=== PATIENT | male | born 1980 | race African-American/Black ===

== ENCOUNTER 2018-05-05 12:21 | Inpatient (IN) | payer OTHER ==
[2018-05-05 12:49] VITALS: BMI 27.8
--- NOTE | 2018-05-05 14:02 | HP ---
CIWA Score Nausea/Vomitin-Mild Nausea/No Vomiting Muscle Tremors: 4-Moderate,w/Arms Extend Anxiety: 2 Agitation: 1-Slight > Activity Paroxysmal Sweats: No Perspiration Orientation: 0-Oriented Tacttile Disturbances: 0-None Auditory Disturbances: 1-Very Mild Visual Disturbances: 1-Very Mild Sensitivity Headache: 2-Mild CIWA-Ar Total Score: 12 - Admission Criteria OASAS Guidelines: Admission for Medically Managed Detox: Requires at least one of the followin. CIWA greater than 12 2. Seizures within the past 24 hours 3. Delirium tremens within the past 24 hours 4. Hallucinations within the past 24 hours 5. Acute intervention needed for co occurring medical disorder 6. Acute intervention needed for co occurring psychiatric disorder 7. Severe withdrawal that cannot be handled at a lower level of care (continued vomiting, continued diarrhea, abnormal vital signs) requiring intravenous medication and/or fluids 8. Admission ROS S - HPI Allergies/Adverse Reactions: Allergies Allergy/AdvReac Type Severity Reaction Status Date / Time No Known Drug Allergies Allergy Unknown Verified 05/05/18 13:11 SEAFOOD Allergy Severe Swelling Uncoded 05/05/18 13:11 History of Present Illness: patient here requesting detox from etoh use , reports 2-6 quarts of liquor / day x 8 months , prior sober x 3 years while incarcerated for DV , released June 2017 , denies current parole / probation , latest etoh use this morning, first age of use 13 , prior detox at this facility 3 years ago . denies illicits. tobacco : 1 ppd since age 13 , does not want nrt PMHX : denies PSHx : denies PSych : denies Meds : denies Shx : lives w/ mother , unemployed Exam Limitations: No Limitations - Ebola screening Have you traveled outside of the country in the last 21 days: No (N) Have you had contact with anyone from an Ebola affected area: No Have you been sick,other than usual withdrawal symptoms: No Do you have a fever: No - Review of Systems Constitutional: See HPI EENT: reports: Other (myopia) Respiratory: reports: No Symptoms reported Cardiac: reports: No Symptoms Reported GI: reports: No Symptoms Reported : reports: No Symptoms Reported Musculoskeletal: reports: No Symptoms Reported Integumentary: reports: No Symptoms Reported Neuro: reports: No Symptoms reported Endocrine: reports: No Symptoms Reported Psychiatric: reports: Orientated x3, Agitated, Anxious Patient History - Patient Medical History Hx Anemia: No Hx Asthma: No Hx Chronic Obstructive Pulmonary Disease (COPD): No Hx Cancer: No Hx Cardiac Disorders: No Hx Congestive Heart Failure: No Hx Hypertension: No Hx Hypercholesterolemia: No Hx Pacemaker: No HX Cerebrovascular Accident: No Hx Seizures: No Hx Dementia: No (feels that he forgets details ) Hx Diabetes: No Hx Gastrointestinal Disorders: No Hx Liver Disease: No Hx Genitourinary Disorders: No Hx Sexually Transmitted Disorders: No Hx Renal Disease (ESRD): No Hx Thyroid Disease: No Hx Human Immunodeficiency Virus (HIV): No (NEGATIVE HX) Hx Hepatitis C: No Hx Depression: Yes Hx Suicide Attempt: No Hx Bipolar Disorder: No (ON PROLIXIN) Hx Schizophrenia: No - Patient Surgical History Past Surgical History: Yes Hx Neurologic Surgery: No Hx Cataract Extraction: No Hx Cardiac Surgery: No Hx Lung Surgery: No Hx Breast Surgery: No Hx Breast Biopsy: No Hx Abdominal Surgery: No Hx Appendectomy: No Hx Cholecystectomy: No Hx Genitourinary Surgery: No Hx Section: No Hx Orthopedic Surgery: No Other Surgical History: stitchen on forehead due to trauma in 2010 Anesthesia Reaction: No - PPD History Previous Implant?: Yes Documented Results: Negative w/proof Implanted On Prior R Admission?: Yes Date: 01/25/14 Results: 0 mm - Smoking Cessation Smoking history: Current every day smoker Have you smoked in the past 12 months: Yes Aproximately how many cigarettes per day: 10 Hx Chewing Tobacco Use: No Initiated information on smoking cessation: No - Substances Abused Alcohol--vodka/beer Route: Oral Frequency: Daily Amount used: 3 pts./2-6 pks. Age of first use: 13 Date of Last Use: 05/05/18 Family Disease History - Family Disease History Family Disease History: Diabetes: Grandparent (ALCOHOLISM), Father (ALCOHOLISM) , Mother (ALCOHOLISM) Admission Physical Exam BHS - Vital Signs Vital Signs: Vital Signs - 24 hr 05/05/18 12:47 Temperature 98.0 F Pulse Rate 74 Respiratory 18 Rate Blood Pressure 127/75 - Physical General Appearance: Yes: Mild Distress, Irritable, Anxious HEENTM: Yes: EOMI, Hearing grossly Normal, Normocephalic, Normal Voice, Pharynx Normal Respiratory: Yes: Chest Non-Tender, Lungs Clear, Normal Breath Sounds Neck: Yes: No masses,lesions,Nodules, Trachea in good position Breast: Yes: Breast Exam Deferred Cardiology: Yes: Regular Rhythm, Regular Rate, S1, S2 Abdominal: Yes: Normal Bowel Sounds, Soft Genitourinary: Yes: Within Normal Limits Back: Yes: Normal Inspection Musculoskeletal: Yes: full range of Motion, Gait Steady Extremities: Yes: Normal Capillary Refill, Normal Range of Motion, Non-Tender, Tremors 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: Yes: Fully Oriented, Alert, Motor Strength 5/5 Integumentary: Yes: Normal Color, Dry, Warm, Other (small supperficial excoriation on the left side of penile shaft) - Diagnostic (1) Alcohol dependence Current Visit: No Status: Acute (2) Nicotine dependence Current Visit: No Status: Chronic Qualifiers: Nicotine product type: cigarettes BHS Breath Alcohol Content Breath Alcohol Content: 0 Urine Drug Screen - Results Drug Screen Negative: Yes
[2018-05-05] MEDS ORDERED: chlordiazePOXIDE HCL 25 MG CAPSULE PO PRN (14:06)
[2018-05-05] MEDS ORDERED: guaiFENesin/D-METHORPHAN HB 10 ML UNIT-DOSE CUPS PO PRN (14:06)
[2018-05-05] MEDS ORDERED: P-EPHED 60MG/TRIPROLIDI 2.5MG TABLET PO PRN (14:06)
[2018-05-05] MEDS ORDERED: MAGNESIUM CITRATE 300 ML BOTTLE PO PRN (14:06)
[2018-05-05] MEDS ORDERED: MAG HYDROX/AL HYDROX/SIMETH 30 ML UNIT-DOSE CUP PO PRN (14:06)
[2018-05-05] MEDS ORDERED: MAGNESIUM HYDROX 2400MG/30ML ORAL SUSPENSION 30 ML CUP PO PRN (14:06)
[2018-05-05] MEDS ORDERED: ACETAMINOPHEN 325 MG TABLET (FP) PO PRN (14:06)
[2018-05-05] MEDS ORDERED: IBUPROFEN 400 MG TABLET (FP) PO PRN (14:06)
[2018-05-05] MEDS ORDERED: MENTHOL/PHENOL 1 EACH UD MM PRN (14:06)
[2018-05-05] MEDS: chlordiazePOXIDE HCL 25 MG CAPSULE PO SCH ×2 (17:18→22:39)
[2018-05-05] MEDS ORDERED: MELATONIN 5 MG TABLETS PO PRN (22:00)
[2018-05-05] MEDS: BACITRACIN/POLYMYXIN B SULFATE 15 GM TUBE TP SCH (22:38)
[2018-05-05] MEDS: THIAMINE HCL 100 MG TABLET (FP) PO SCH (22:39)
[2018-05-06] MEDS: chlordiazePOXIDE HCL 25 MG CAPSULE PO SCH ×4 (06:33→22:05)
[2018-05-06] MEDS: BACITRACIN/POLYMYXIN B SULFATE 15 GM TUBE TP SCH ×2 (10:13→22:05)
[2018-05-06] MEDS: PRENATAL VITAMINS W/ FOLIC ACID TABLET (FP) PO SCH (10:14)
--- NOTE | 2018-05-06 10:45 | PN ---
S CIWA - CIWA Score Nausea/Vomitin Muscle Tremors: None Anxiety: 4-Mod. Anxious/Guarded Agitation: 3 Paroxysmal Sweats: No Perspiration Orientation: 0-Oriented Tacttile Disturbances: 0-None Auditory Disturbances: 0-None Visual Disturbances: 0-None Headache: 2-Mild CIWA-Ar Total Score: 11 BHS Progress Note (SOAP) Subjective: PATIENT ADMITTED YESTERDAY FOR ETOH DETOX. EVALUATED AT BEDSIDE. C/O NAUSEA/ DIARRHEA, INTERRUPTED SLEEP, RESTLESSNESS. Objective: 05/06/18 10:43 Vital Signs Temperature 97.2 F L 05/06/18 09:46 Pulse Rate 82 05/06/18 09:46 Respiratory Rate 20 05/06/18 09:46 Blood Pressure 122/77 05/06/18 09:46 O2 Sat by Pulse Oximetry (%) PE: ALERT AND ORIENTED X 3 SKIN WARM AND DRY ANXIOUS/GUARDED RESTLESS, MOVING AROUND IN BED EXT FULL ROM , NO TREMORS Assessment: 05/06/18 10:45 ETOH WITHDRAWAL SX Plan: CONTINUE DETOX ENCOURAGE ORAL FLUIDS CONTINUE TO MONITOR CLINICALLY
[2018-05-06 10:56] LABS: HEMATOCRIT 41.1 % (35.4-49); MCH 25.4 pg (25.7-33.7); MCHC 31.5 g/dl (32.0-35.9); MEAN CELL VOLUME 80.6 fl (80-96); MEAN PLT VOLUME 7.3 fl (7.5-11.1); PLATELET COUNT 441 K/MM3 (134-434); RDW 16.2 % (11.9-15.9); WHITE BLOOD COUNT 5.5 K/mm3 (4.0-10.0)
[2018-05-06 11:05] LABS: ALK PHOS 55 U/L (45-117); ANION GAP 9 MMOL/L (8-16); BILIRUBIN,TOTAL 0.3 mg/dL (0.2-1); BLOOD UREA NITROGEN 10 mg/dL (7-18); CALCIUM 9.6 mg/dL (8.5-10.1); CHLORIDE 105 mmol/L (98-107); CO2 27 mmol/L (21-32); CREATININE 0.9 mg/dL (0.55-1.3); GLUCOSE,RANDOM 95 mg/dL (74-106); POTASSIUM 4.3 mmol/L (3.5-5.1); SGOT/AST 23 U/L (15-37); SGPT/ALT 32 U/L (13-61); SODIUM 141 mmol/L (136-145); TOT PROT 7.6 g/dl (6.4-8.2)
[2018-05-06] MEDS: THIAMINE HCL 100 MG TABLET (FP) PO SCH (22:05)
[2018-05-07] MEDS: chlordiazePOXIDE HCL 25 MG CAPSULE PO SCH ×2 (06:00→10:20)
[2018-05-07] MEDS: BACITRACIN/POLYMYXIN B SULFATE 15 GM TUBE TP SCH ×2 (10:20→22:34)
[2018-05-07] MEDS: PRENATAL VITAMINS W/ FOLIC ACID TABLET (FP) PO SCH (10:20)
--- NOTE | 2018-05-07 13:10 | PN ---
S CIWA - CIWA Score Nausea/Vomitin Muscle Tremors: 2 Anxiety: 2 Agitation: 2 Paroxysmal Sweats: 1-Minimal Palms Moist Orientation: 0-Oriented Tacttile Disturbances: 1-Very Mild Itch/Numbness Auditory Disturbances: 1-Very Mild Visual Disturbances: 0-None Headache: 2-Mild CIWA-Ar Total Score: 13 BHS Progress Note (SOAP) Subjective: alert,irritable,anxious,pain in the body and back,tremor Objective: 05/07/18 13:08 Vital Signs Temperature 97.9 F 05/07/18 09:33 Pulse Rate 80 05/07/18 09:33 Respiratory Rate 18 05/07/18 09:33 Blood Pressure 121/66 05/07/18 09:33 O2 Sat by Pulse Oximetry (%) 05/07/18 13:09 Laboratory Last Values WBC 5.5 K/mm3 (4.0-10.0) 05/06/18 05:45 RBC 5.10 M/mm3 (4.00-5.60) 05/06/18 05:45 Hgb 13.0 GM/dL (11.7-16.9) 05/06/18 05:45 Hct 41.1 % (35.4-49) 05/06/18 05:45 MCV 80.6 fl (80-96) 05/06/18 05:45 MCH 25.4 pg (25.7-33.7) L 05/06/18 05:45 MCHC 31.5 g/dl (32.0-35.9) L 05/06/18 05:45 RDW 16.2 % (11.9-15.9) H 05/06/18 05:45 Plt Count 441 K/MM3 (134-434) H D 05/06/18 05:45 MPV 7.3 fl (7.5-11.1) L 05/06/18 05:45 Sodium 141 mmol/L (136-145) 05/06/18 05:45 Potassium 4.3 mmol/L (3.5-5.1) 05/06/18 05:45 Chloride 105 mmol/L (98-107) 05/06/18 05:45 Carbon Dioxide 27 mmol/L (21-32) 05/06/18 05:45 Anion Gap 9 MMOL/L (8-16) 05/06/18 05:45 BUN 10 mg/dL (7-18) 05/06/18 05:45 Creatinine 0.9 mg/dL (0.55-1.3) 05/06/18 05:45 Creat Clearance w eGFR > 60 (>60) 05/06/18 05:45 Random Glucose 95 mg/dL (74-106) 05/06/18 05:45 Calcium 9.6 mg/dL (8.5-10.1) 05/06/18 05:45 Total Bilirubin 0.3 mg/dL (0.2-1) 05/06/18 05:45 AST 23 U/L (15-37) 05/06/18 05:45 ALT 32 U/L (13-61) 05/06/18 05:45 Alkaline Phosphatase 55 U/L (45-117) 05/06/18 05:45 Total Protein 7.6 g/dl (6.4-8.2) 05/06/18 05:45 Albumin 4.0 g/dl (3.4-5.0) 05/06/18 05:45 RPR Titer Nonreactive (NONREACTIVE) 05/06/18 05:45 Assessment: 05/07/18 13:09 withdrawal symptom Plan: continue detox
[2018-05-07] MEDS: chlordiazePOXIDE 5 MG CAPSULE PO SCH ×2 (17:30→22:34)
[2018-05-07] MEDS: THIAMINE HCL 100 MG TABLET (FP) PO SCH (22:33)
[2018-05-08] MEDS: chlordiazePOXIDE 5 MG CAPSULE PO SCH ×2 (06:13→10:33)
[2018-05-08 09:22] VITALS: BP 114/63; PULSE 73; TEMP 97.6
[2018-05-08] MEDS: PRENATAL VITAMINS W/ FOLIC ACID TABLET (FP) PO SCH (10:33)
[2018-05-08] MEDS: BACITRACIN/POLYMYXIN B SULFATE 15 GM TUBE TP SCH (10:33)
[2018-05-08] MEDS ORDERED: chlordiazePOXIDE HCL 10 MG CAPSULE PO ONE (10:35)
--- NOTE | 2018-05-08 13:15 | DS ---
[facility] Detox Discharge Summary Admission Date: 05/05/18 Discharge Date: 05/08/18 - History Present History: Alcohol Dependence Additional Comments: Patient requested early discharge. As per patient, he wants to leave today ([place] ) instead of tomorrow. Patient refused his last 2 doses of librium 15mg. He agreed to take 10mg of librium x 1 dose but left before receiving it stating that he doesn't need it. Patient is A, A,Ox3, in nad, ambulating freely. Patient instructed to follow up with his PCP within 1 week. Pertinent Past History: Alcohol dependence Asthma, mild intermittent GERD Nicotine dependence HTN Overweight - Physical Exam Results Vital Signs: Vital Signs Temperature 97.6 F 05/08/18 09:21 Pulse Rate 73 05/08/18 09:21 Respiratory Rate 18 05/08/18 09:21 Blood Pressure 114/63 05/08/18 09:21 O2 Sat by Pulse Oximetry (%) Pertinent Admission Physical Exam Findings: Withdrawal symptoms Laboratory Tests 05/06/18 05/06/18 05/06/18 05:45 05:45 05:45 WBC 5.5 RBC 5.10 Hgb 13.0 Hct 41.1 MCV 80.6 MCH 25.4 L MCHC 31.5 L RDW 16.2 H Plt Count 441 H D MPV 7.3 L Sodium 141 Potassium 4.3 Chloride 105 Carbon Dioxide 27 Anion Gap 9 BUN 10 Creatinine 0.9 Creat Clearance w eGFR > 60 Random Glucose 95 Calcium 9.6 Total Bilirubin 0.3 AST 23 ALT 32 Alkaline Phosphatase 55 Total Protein 7.6 Albumin 4.0 RPR Titer Nonreactive Labs reviewed - Treatment Hospital Course: Detox Protocol Followed, Detoxed Safely, Responded well, Discharged Condition Good - Medication Discharge Medications: Ambulatory Orders NK [No Known Home Medication] 05/05/18 - Diagnosis (1) Overweight Status: Acute (2) Alcohol dependence with uncomplicated withdrawal Status: Acute (3) Asthma Status: Chronic (4) GERD (gastroesophageal reflux disease) Status: Chronic (5) HTN (hypertension) Status: Chronic (6) Nicotine dependence Status: Chronic Qualifiers: Nicotine product type: cigarettes - AMA Did Patient Leave Against Medical Advice: No (F/U with PCP within 1 week)
[2018-05-08] MEDS ORDERED: chlordiazePOXIDE HCL 10 MG CAPSULE PO SCH (17:00)
== END 2018-05-08 11:05 | disposition home or self-care (01) | DRG 897 ==
LOC: YASAS 12:21 → Y3N 14:50
PROC: HZ2ZZZZ Detoxification Services for Substance Abuse Treatment (ICD-10-PCS; principal; 2018-05-05)
DX: F10.230 Alcohol dependence with withdrawal, uncomplicated (principal); F17.210 Nicotine dependence, cigarettes, uncomplicated; I10 Essential (primary) hypertension; J45.909 Unspecified asthma, uncomplicated; K21.9 Gastro-esophageal reflux disease without esophagitis; E66.9 Obesity, unspecified; Z68.27 Body mass index [BMI] 27.0-27.9, adult
CPT/HCPCS: 36415; 80053; 85027; 86593

== ENCOUNTER 2018-06-07 09:05 | Inpatient (IN) | payer OTHER ==
[2018-06-07 09:23] VITALS: BMI 28.4
--- NOTE | 2018-06-07 10:38 | HP ---
CIWA Score Nausea/Vomitin Muscle Tremors: 4-Moderate,w/Arms Extend Anxiety: 0-No Anxiety, at Ease Agitation: 4-Moderately Restless Paroxysmal Sweats: No Perspiration Orientation: 0-Oriented Tacttile Disturbances: 0-None Auditory Disturbances: 0-None Visual Disturbances: 2-Mild Sensitivity Headache: 0-None Present CIWA-Ar Total Score: 12 - Admission Criteria OASAS Guidelines: Admission for Medically Managed Detox: Requires at least one of the followin. CIWA greater than 12 2. Seizures within the past 24 hours 3. Delirium tremens within the past 24 hours 4. Hallucinations within the past 24 hours 5. Acute intervention needed for co occurring medical disorder 6. Acute intervention needed for co occurring psychiatric disorder 7. Severe withdrawal that cannot be handled at a lower level of care (continued vomiting, continued diarrhea, abnormal vital signs) requiring intravenous medication and/or fluids 8. Patient presents the following: CIWA greater than 12 Admission Criteria Met: Admission criteria met Admission ROS S - HPI Allergies/Adverse Reactions: Allergies Allergy/AdvReac Type Severity Reaction Status Date / Time No Known Drug Allergies Allergy Unknown Verified 06/07/18 10:51 SEAFOOD Allergy Severe Swelling Uncoded 06/07/18 10:51 History of Present Illness: patient here requesting detox from etoh use , reports 2 cases and 4 pints / day x 4 months , current symptoms as above , reports tremors if not drinking , starts drinking in the evenings , denies seizures or blackouts, latest use last night . Denies SI / HI . tobacco ; 1 ppd PMHX : denies PSHx : denies PSych : denies SHx : lives w/ family , unemployed Exam Limitations: Clinical Condition - Ebola screening Have you traveled outside of the country in the last 21 days: No Have you had contact with anyone from an Ebola affected area: No Have you been sick,other than usual withdrawal symptoms: No Do you have a fever: No - Review of Systems Constitutional: See HPI EENT: reports: See HPI Respiratory: reports: No Symptoms reported, See HPI Cardiac: reports: No Symptoms Reported GI: reports: See HPI : reports: No Symptoms Reported Musculoskeletal: reports: No Symptoms Reported Integumentary: reports: No Symptoms Reported Neuro: reports: No Symptoms reported Endocrine: reports: No Symptoms Reported Psychiatric: reports: Orientated x3, Depressed Patient History - Patient Medical History Hx Anemia: No Hx Asthma: No Hx Chronic Obstructive Pulmonary Disease (COPD): No Hx Cancer: No Hx Cardiac Disorders: No Hx Congestive Heart Failure: No Hx Hypertension: No Hx Hypercholesterolemia: No Hx Pacemaker: No HX Cerebrovascular Accident: No Hx Seizures: No Hx Dementia: No (feels that he forgets details ) Hx Diabetes: No Hx Gastrointestinal Disorders: No Hx Liver Disease: No Hx Genitourinary Disorders: No Hx Sexually Transmitted Disorders: No Hx Renal Disease (ESRD): No Hx Thyroid Disease: No Hx Human Immunodeficiency Virus (HIV): No (NEGATIVE HX) Hx Hepatitis C: No Hx Depression: Yes Hx Suicide Attempt: No Hx Bipolar Disorder: No (ON PROLIXIN) Hx Schizophrenia: No - Patient Surgical History Past Surgical History: Yes Hx Neurologic Surgery: No Hx Cataract Extraction: No Hx Cardiac Surgery: No Hx Lung Surgery: No Hx Breast Surgery: No Hx Breast Biopsy: No Hx Abdominal Surgery: No Hx Appendectomy: No Hx Cholecystectomy: No Hx Genitourinary Surgery: No Hx Section: No Hx Orthopedic Surgery: No Other Surgical History: stitchen on forehead due to trauma in 2010 Anesthesia Reaction: No - PPD History Date: 05/07/18 Results: 0 mm - Smoking Cessation Smoking history: Current every day smoker Have you smoked in the past 12 months: Yes Aproximately how many cigarettes per day: 10 Hx Chewing Tobacco Use: No Initiated information on smoking cessation: No - Substances Abused Alcohol Route: Oral Frequency: Daily Amount used: 2 6pk beers Age of first use: 13 Date of Last Use: 06/06/18 Family Disease History - Family Disease History Family Disease History: Diabetes: Grandparent (ALCOHOLISM), Father (ALCOHOLISM) , Mother (ALCOHOLISM) Admission Physical Exam BHS - Vital Signs Vital Signs: Vital Signs - 24 hr 06/07/18 09:20 Temperature 98.7 F Pulse Rate 78 Respiratory 20 Rate Blood Pressure 134/61 - Physical General Appearance: Yes: Disheveled, Mild Distress HEENTM: Yes: EOMI, Hearing grossly Normal, Normocephalic, Normal Voice Respiratory: Yes: Chest Non-Tender, Lungs Clear, Normal Breath Sounds Neck: Yes: No masses,lesions,Nodules, Trachea in good position Breast: Yes: Breast Exam Deferred Cardiology: Yes: Regular Rhythm, Regular Rate, S1, S2 Abdominal: Yes: Normal Bowel Sounds, Soft Genitourinary: Yes: Within Normal Limits Back: Yes: Normal Inspection Musculoskeletal: Yes: full range of Motion, Gait Steady Extremities: Yes: Normal Capillary Refill, Non-Tender, Tremors 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: Yes: Motor Strength 5/5, Depressed Affect Integumentary: Yes: Normal Color, Dry - Diagnostic (1) Alcohol dependence with uncomplicated withdrawal Current Visit: No Status: Acute (2) Nicotine dependence Current Visit: No Status: Chronic Qualifiers: Nicotine product type: cigarettes BHS Breath Alcohol Content Breath Alcohol Content: 0 Urine Drug Screen - Results Drug Screen Negative: Yes
[2018-06-07] MEDS ORDERED: MAG HYDROX/AL HYDROX/SIMETH 30 ML UNIT-DOSE CUP PO PRN (10:58)
[2018-06-07] MEDS ORDERED: IBUPROFEN 400 MG TABLET (FP) PO PRN (10:58)
[2018-06-07] MEDS ORDERED: NICOTINE POLACRILEX 2 MG GUM BUC PRN (10:58)
[2018-06-07] MEDS ORDERED: ACETAMINOPHEN 325 MG TABLET (FP) PO PRN (10:58)
[2018-06-07] MEDS ORDERED: MAGNESIUM CITRATE 300 ML BOTTLE PO PRN (10:58)
[2018-06-07] MEDS ORDERED: MENTHOL/PHENOL 1 EACH UD MM PRN (10:58)
[2018-06-07] MEDS ORDERED: MAGNESIUM HYDROX 2400MG/30ML ORAL SUSPENSION 30 ML CUP PO PRN (10:58)
[2018-06-07] MEDS ORDERED: P-EPHED 60MG/TRIPROLIDI 2.5MG TABLET PO PRN (10:58)
[2018-06-07] MEDS ORDERED: guaiFENesin/D-METHORPHAN HB 10 ML UNIT-DOSE CUPS PO PRN (10:58)
[2018-06-07] MEDS ORDERED: diazePAM 5 MG TABLET PO PRN (10:58)
[2018-06-07] MEDS: diazePAM 5 MG TABLET PO SCH ×2 (14:40→22:30)
[2018-06-07] MEDS ORDERED: MELATONIN 5 MG TABLETS PO PRN (22:00)
[2018-06-07] MEDS: THIAMINE HCL 100 MG TABLET (FP) PO SCH (22:29)
[2018-06-08] MEDS: diazePAM 5 MG TABLET PO SCH ×3 (06:19→22:56)
[2018-06-08 10:24] LABS: HEMATOCRIT 41.6 % (35.4-49); HEMOGLOBIN 13.9 GM/dL (11.7-16.9); MCH 26.9 pg (25.7-33.7); MCHC 33.3 g/dl (32.0-35.9); MEAN CELL VOLUME 80.7 fl (80-96); MEAN PLT VOLUME 7.9 fl (7.5-11.1); PLATELET COUNT 413 K/MM3 (134-434); RBC 5.16 M/mm3 (4.00-5.60); RDW 16.7 % (11.9-15.9); WHITE BLOOD COUNT 5.4 K/mm3 (4.0-10.0)
[2018-06-08] MEDS: PRENATAL VITAMINS W/ FOLIC ACID TABLET (FP) PO SCH (10:25)
--- NOTE | 2018-06-08 10:52 | CONSULT ---
[facility] Psychiatric Consult - Data Date of interview: 06/08/18 Admission source: [facility] Identifying data: This is a 38 years old male, single,no children, unemployed, living with family, on SSI support, with unclear past psychiatric hospitalization history, with history of mSchizoaffective disorder. Patient is here requesting detox from etoh use, reportinf Alcohol withdrawal symptoms, Substance Abuse History: Patient reports history of Alcohol and Nicotine dependence. Poor historyan. - Smoking Cessation. Smoking history: Current every day smoker. Have you smoked in the past 12 months: Yes. Aproximately how many cigarettes per day: 10. Hx Chewing Tobacco Use: No. Initiated information on smoking cessation: No. - Substances Abused. Alcohol. Route : Oral. Frequency: Daily. Amount used: 2 6pk beers. Age of first use: 13. Date of Last Use: 06/06/18 Medical History: Weight loss history, GERD.HTN, Hip,injury history Psychiatric History: Patient reports history of Schizoaffective disorder, reports unclear psychiatric hospitalization history, reports no medications taking prior to admission, refusing to restart pharmacological intervention. Denies suicidal, homicidal ideation Physical/Sexual Abuse/Trauma History: Denies Additional Comment: Observation,. Detox Unit Care Protocol Mental Status Exam - Mental Status Exam Alert and Oriented to: Person Cognitive Function: Fair Patient Appearance: Unkempt Mood: Sad Affect: Flat Patient Behavior: Sedated Speech Pattern: Delayed Voice Loudness: Mildly Soft/Quiet Thought Process: Circumstantial, Goal Oriented Thought Disorder: Being Controlled Hallucinations: Denies Suicidal Ideation: Denies Homicidal Ideation: Denies Insight/Judgement: Fair Sleep: Fair Appetite: Weight loss Muscle strength/Tone: Normal Gait/Station: Deferred Additional Comments: Observation,. Detox Unit Care Protocol Psychiatric Findings - Problem List (Carbon 1, 2,3) (1) Alcohol dependence Current Visit: No Status: Acute (2) Alcohol dependence, episodic drinking behavior Current Visit: No Status: Acute (3) Overweight Current Visit: No Status: Acute (4) Asthma Current Visit: No Status: Chronic (5) GERD (gastroesophageal reflux disease) Current Visit: No Status: Chronic (6) HTN (hypertension) Current Visit: No Status: Chronic (7) Nicotine dependence Current Visit: No Status: Chronic Qualifiers: Nicotine product type: cigarettes (8) Schizoaffective disorder Current Visit: No Status: Chronic (9) Hip disease Current Visit: No Status: Suspected - Initial Treatment Plan Initial Treatment Plan: Observation,. Detox Unit Care Protocol
[2018-06-08 10:53] LABS: ALK PHOS 56 U/L (45-117); ANION GAP 8 MMOL/L (8-16); BILIRUBIN,TOTAL 0.4 mg/dL (0.2-1); BLOOD UREA NITROGEN 17 mg/dL (7-18); CALCIUM 9.2 mg/dL (8.5-10.1); CHLORIDE 106 mmol/L (98-107); CO2 29 mmol/L (21-32); CREATININE 0.9 mg/dL (0.55-1.3); GLUCOSE,RANDOM 99 mg/dL (74-106); POTASSIUM 4.1 mmol/L (3.5-5.1); SGOT/AST 19 U/L (15-37); SGPT/ALT 29 U/L (13-61); SODIUM 142 mmol/L (136-145); TOT PROT 7.3 g/dl (6.4-8.2)
--- NOTE | 2018-06-08 14:10 | PN ---
[facility] CIWA - CIWA Score Nausea/Vomitin-Mild Nausea/No Vomiting Muscle Tremors: 3 Anxiety: 3 Agitation: 3 Paroxysmal Sweats: 1-Minimal Palms Moist Orientation: 1-Uncertain about Date Tacttile Disturbances: 0-None Auditory Disturbances: 0-None Visual Disturbances: 0-None Headache: 2-Mild CIWA-Ar Total Score: 14 S Progress Note (SOAP) Subjective: gi distress tremor sweating low energy Objective: 06/08/18 14:10 Vital Signs Temperature 98.8 F 06/08/18 13:12 Pulse Rate 82 06/08/18 13:12 Respiratory Rate 18 06/08/18 13:12 Blood Pressure 105/57 L 06/08/18 13:12 O2 Sat by Pulse Oximetry (%) Laboratory Last Values WBC 5.4 K/mm3 (4.0-10.0) 06/08/18 06:00 RBC 5.16 M/mm3 (4.00-5.60) 06/08/18 06:00 Hgb 13.9 GM/dL (11.7-16.9) 06/08/18 06:00 Hct 41.6 % (35.4-49) 06/08/18 06:00 MCV 80.7 fl (80-96) 06/08/18 06:00 MCH 26.9 pg (25.7-33.7) 06/08/18 06:00 MCHC 33.3 g/dl (32.0-35.9) 06/08/18 06:00 RDW 16.7 % (11.9-15.9) H 06/08/18 06:00 Plt Count 413 K/MM3 (134-434) 06/08/18 06:00 MPV 7.9 fl (7.5-11.1) 06/08/18 06:00 Sodium 142 mmol/L (136-145) 06/08/18 06:00 Potassium 4.1 mmol/L (3.5-5.1) 06/08/18 06:00 Chloride 106 mmol/L (98-107) 06/08/18 06:00 Carbon Dioxide 29 mmol/L (21-32) 06/08/18 06:00 Anion Gap 8 MMOL/L (8-16) 06/08/18 06:00 BUN 17 mg/dL (7-18) 06/08/18 06:00 Creatinine 0.9 mg/dL (0.55-1.3) 06/08/18 06:00 Creat Clearance w eGFR > 60 (>60) 06/08/18 06:00 Random Glucose 99 mg/dL (74-106) 06/08/18 06:00 Calcium 9.2 mg/dL (8.5-10.1) 06/08/18 06:00 Total Bilirubin 0.4 mg/dL (0.2-1) 06/08/18 06:00 AST 19 U/L (15-37) 06/08/18 06:00 ALT 29 U/L (13-61) 06/08/18 06:00 Alkaline Phosphatase 56 U/L (45-117) 06/08/18 06:00 Total Protein 7.3 g/dl (6.4-8.2) 06/08/18 06:00 Albumin 4.0 g/dl (3.4-5.0) 06/08/18 06:00 RPR Titer Nonreactive (NONREACTIVE) 06/08/18 06:00 HIV 1&2 Antibody Screen Negative 06/07/18 11:00 HIV P24 Antigen Negative 06/07/18 11:00 lab noted Assessment: 06/08/18 14:11 withdrawal sx Plan: continue detox
[2018-06-08] MEDS: THIAMINE HCL 100 MG TABLET (FP) PO SCH (22:56)
[2018-06-09] MEDS: diazePAM 5 MG TABLET PO SCH ×2 (10:16→22:27)
[2018-06-09] MEDS: PRENATAL VITAMINS W/ FOLIC ACID TABLET (FP) PO SCH (10:16)
--- NOTE | 2018-06-09 14:58 | PN ---
S CIWA - CIWA Score Nausea/Vomitin-No Nausea/No Vomiting Muscle Tremors: 4-Moderate,w/Arms Extend Anxiety: 3 Agitation: 1-Slight > Activity Paroxysmal Sweats: 3 Orientation: 0-Oriented Tacttile Disturbances: 2-Mild Itch/Numbness/Burn Auditory Disturbances: 0-None Visual Disturbances: 0-None Headache: 3-Moderate CIWA-Ar Total Score: 16 BHS Progress Note (SOAP) Subjective: Tremors, H/A, Sweating. Objective: PATIENT A & O X 3. IN NO ACUTE DISTRESS. 06/09/18 14:57 Vital Signs Temperature 97.5 F L 06/09/18 13:19 Pulse Rate 84 06/09/18 13:19 Respiratory Rate 18 06/09/18 13:19 Blood Pressure 128/68 06/09/18 13:19 O2 Sat by Pulse Oximetry (%) Laboratory Tests 06/07/18 06/08/18 06/08/18 11:00 06:00 06:00 WBC 5.4 RBC 5.16 Hgb 13.9 Hct 41.6 MCV 80.7 MCH 26.9 MCHC 33.3 RDW 16.7 H Plt Count 413 MPV 7.9 Sodium 142 Potassium 4.1 Chloride 106 Carbon Dioxide 29 Anion Gap 8 BUN 17 Creatinine 0.9 Creat Clearance w eGFR > 60 Random Glucose 99 Calcium 9.2 Total Bilirubin 0.4 AST 19 ALT 29 Alkaline Phosphatase 56 Total Protein 7.3 Albumin 4.0 RPR Titer HIV 1&2 Antibody Screen Negative HIV P24 Antigen Negative 06/08/18 06:00 WBC RBC Hgb Hct MCV MCH MCHC RDW Plt Count MPV Sodium Potassium Chloride Carbon Dioxide Anion Gap BUN Creatinine Creat Clearance w eGFR Random Glucose Calcium Total Bilirubin AST ALT Alkaline Phosphatase Total Protein Albumin RPR Titer Nonreactive HIV 1&2 Antibody Screen HIV P24 Antigen LABS NOTED. Assessment: 06/09/18 14:58 WITHDRAWAL SYMPTOMS. Plan: CONTINUE DETOX.
[2018-06-09] MEDS: THIAMINE HCL 100 MG TABLET (FP) PO SCH (22:27)
[2018-06-10 10:31] VITALS: BP 131/67; PULSE 91; TEMP 97.4
[2018-06-10] MEDS: PRENATAL VITAMINS W/ FOLIC ACID TABLET (FP) PO SCH (10:49)
[2018-06-10] MEDS: diazePAM 5 MG TABLET PO SCH (10:50)
--- NOTE | 2018-06-10 18:06 | DS ---
[facility] Detox Discharge Summary Admission Date: 06/07/18 Discharge Date: 06/10/18 - History Present History: Alcohol Dependence Additional Comments: PATIENT INITIALLY OFFERED REHAB BED AT [facility] ([place], [place] ). PATIENT AT FIRST ACCEPTED; HOWEVER, THEN DECLINED AND ELECTED TO GO HOME. PATIENT ADVISED TO CONSIDER LOCAL 12-STEP / NA / AA OUTPATIENT SUPPORT GROUP MEETINGS FOR AFTERCARE. PATIENT VERBALIZED UNDERSTANDING OF RECOMMENDATION. PATIENT WAS DISCHARGED FROM DETOX UNIT IN STABLE MEDICAL CONDITION. Pertinent Past History: History of Depression, Nicotine Dependence, Schizoaffective Disorder, G.RE.R.D. , History Of Hip Disease, History of Bipolar Disorder. - Physical Exam Results Vital Signs: Vital Signs Temperature 97.4 F L 06/10/18 10:30 Pulse Rate 91 H 06/10/18 10:30 Respiratory Rate 20 06/10/18 10:30 Blood Pressure 131/67 06/10/18 10:30 O2 Sat by Pulse Oximetry (%) Pertinent Admission Physical Exam Findings: WITHDRAWAL SYMPTOMS. Laboratory Tests 06/07/18 06/08/18 06/08/18 11:00 06:00 06:00 WBC 5.4 RBC 5.16 Hgb 13.9 Hct 41.6 MCV 80.7 MCH 26.9 MCHC 33.3 RDW 16.7 H Plt Count 413 MPV 7.9 Sodium 142 Potassium 4.1 Chloride 106 Carbon Dioxide 29 Anion Gap 8 BUN 17 Creatinine 0.9 Creat Clearance w eGFR > 60 Random Glucose 99 Calcium 9.2 Total Bilirubin 0.4 AST 19 ALT 29 Alkaline Phosphatase 56 Total Protein 7.3 Albumin 4.0 RPR Titer HIV 1&2 Antibody Screen Negative HIV P24 Antigen Negative 06/08/18 06:00 WBC RBC Hgb Hct MCV MCH MCHC RDW Plt Count MPV Sodium Potassium Chloride Carbon Dioxide Anion Gap BUN Creatinine Creat Clearance w eGFR Random Glucose Calcium Total Bilirubin AST ALT Alkaline Phosphatase Total Protein Albumin RPR Titer Nonreactive HIV 1&2 Antibody Screen HIV P24 Antigen LABS NOTED. - Treatment Hospital Course: Detox Protocol Followed, Detoxed Safely, Responded well, Discharged Condition Good Patient has Accepted a Rehab Referral to: PT. DECLINED; ADVISED TO CONSIDER LOCAL 12-STEP/NA/AA OP SUPPORT GROUP. - Medication Discharge Medications: Ambulatory Orders NK [No Known Home Medication] 05/05/18 - Diagnosis (1) Alcohol dependence with uncomplicated withdrawal Status: Acute (2) GERD (gastroesophageal reflux disease) Status: Chronic Qualifiers: Esophagitis presence: esophagitis presence not specified Qualified Code(s) : K21.9 - Gastro-esophageal reflux disease without esophagitis (3) Nicotine dependence Status: Chronic Qualifiers: Nicotine product type: cigarettes Substance use status: uncomplicated Qualified Code(s): F17.210 - Nicotine dependence, cigarettes, uncomplicated (4) Schizoaffective disorder Status: Chronic Qualifiers: Schizoaffective disorder type: unspecified Qualified Code(s): F25.9 - Schizoaffective disorder, unspecified (5) Hip disease Status: Suspected (6) Alcohol dependence, episodic drinking behavior Status: Acute (7) Overweight Status: Acute (8) HTN (hypertension) Status: Chronic Qualifiers: Hypertension type: unspecified Qualified Code(s): I10 - Essential (primary ) hypertension - AMA Did Patient Leave Against Medical Advice: No
[2018-06-11] MEDS ORDERED: diazePAM 5 MG TABLET PO SCH (10:00)
== END 2018-06-10 11:30 | disposition home or self-care (01) | DRG 897 ==
LOC: YASAS 09:05 → Y3N 11:21
PROVIDERS: ADMIT Neuromusculoskeletal Medicine & OMM; ATTEND Neuromusculoskeletal Medicine & OMM
PROC: HZ2ZZZZ Detoxification Services for Substance Abuse Treatment (ICD-10-PCS; principal; 2018-06-07)
DX: F10.230 Alcohol dependence with withdrawal, uncomplicated (principal); F17.210 Nicotine dependence, cigarettes, uncomplicated; F25.9 Schizoaffective disorder, unspecified; I10 Essential (primary) hypertension; K21.9 Gastro-esophageal reflux disease without esophagitis; J45.909 Unspecified asthma, uncomplicated; E66.3 Overweight; Z68.28 Body mass index [BMI] 28.0-28.9, adult; Z86.59 Personal history of other mental and behavioral disorders
CPT/HCPCS: 36415; 80053; 85027; 86593; 87389

== ENCOUNTER 2018-12-04 08:46 | Inpatient (IN) | payer OTHER ==
[2018-12-04 09:18] VITALS: BMI 27.9
[2018-12-04] MEDS ORDERED: BISMUTH SUBSALICYLATE 262 MG/15 ML BTL PO PRN (10:02)
[2018-12-04] MEDS ORDERED: MENTHOL/PHENOL 1 EACH UD MM PRN (10:02)
[2018-12-04] MEDS ORDERED: MAGNESIUM CITRATE 300 ML BOTTLE PO PRN (10:02)
[2018-12-04] MEDS ORDERED: MAG HYDROX/AL HYDROX/SIMETH 30 ML UNIT-DOSE CUP PO PRN (10:02)
[2018-12-04] MEDS ORDERED: MAGNESIUM HYDROX 2400MG/30ML ORAL SUSPENSION 30 ML CUP PO PRN (10:02)
[2018-12-04] MEDS ORDERED: IBUPROFEN 400 MG TABLET (FP) PO PRN (10:02)
[2018-12-04] MEDS ORDERED: hydrOXYzine PAMOATE 25 MG CAPSULE (FP) PO PRN (10:02)
[2018-12-04] MEDS ORDERED: chlordiazePOXIDE HCL 10 MG CAPSULE PO PRN (10:02)
[2018-12-04] MEDS ORDERED: MELATONIN 5 MG TABLETS PO PRN (10:02)
[2018-12-04] MEDS ORDERED: METHOCARBAMOL 500 MG TABLET PO PRN (10:02)
[2018-12-04] MEDS ORDERED: ACETAMINOPHEN 325 MG TABLET (FP) PO PRN ×2 (10:02)
[2018-12-04] MEDS: NICOTINE 14 MG/24 HOURS TOPICAL PATCH TD SCH (11:32)
[2018-12-04] MEDS: chlordiazePOXIDE HCL 25 MG CAPSULE PO SCH ×2 (14:14→22:39)
[2018-12-04] MEDS: THIAMINE HCL 100 MG TABLET (FP) PO SCH (22:39)
[2018-12-05] MEDS: chlordiazePOXIDE HCL 25 MG CAPSULE PO SCH ×3 (07:25→22:27)
[2018-12-05] MEDS: NICOTINE 14 MG/24 HOURS TOPICAL PATCH TD SCH (10:23)
[2018-12-05] MEDS: PRENATAL VITAMINS W/ FOLIC ACID TABLET (FP) PO SCH (10:23)
[2018-12-05 12:07] LABS: HEMATOCRIT 41.2 % (35.4-49); HEMOGLOBIN 13.5 GM/dL (11.7-16.9); MCH 26.6 pg (25.7-33.7); MCHC 32.7 g/dl (32.0-35.9); MEAN CELL VOLUME 81.4 fl (80-96); MEAN PLT VOLUME 7.8 fl (7.5-11.1); PLATELET COUNT 306 K/MM3 (134-434); RBC 5.05 M/mm3 (4.00-5.60); RDW 15.6 % (11.9-15.9); WHITE BLOOD COUNT 5.2 K/mm3 (4.0-10.0)
[2018-12-05 12:17] LABS: ALBUMIN 3.5 g/dl (3.4-5.0); BILIRUBIN,TOTAL 0.3 mg/dL (0.2-1); BLOOD UREA NITROGEN 10.5 mg/dL (7-18); CALCIUM 8.7 mg/dL (8.5-10.1); CREATININE 0.8 mg/dL (0.55-1.3); POTASSIUM 4.3 mmol/L (3.5-5.1); TOT PROT 6.6 g/dl (6.4-8.2)
--- NOTE | 2018-12-05 15:47 | PN ---
[facility] CIWA - CIWA Score Nausea/Vomitin-No Nausea/No Vomiting Muscle Tremors: None Anxiety: 3 Agitation: 1-Slight > Activity Paroxysmal Sweats: No Perspiration Orientation: 2-Disoriented Date<2 days Tacttile Disturbances: 1-Very Mild Itch/Numbness Auditory Disturbances: 2-Mild Harshness/Frighten Visual Disturbances: 2-Mild Sensitivity Headache: 0-None Present CIWA-Ar Total Score: 11 S Progress Note (SOAP) Subjective: Fatigue, Anxious, Interrupted Sleep. Objective: PATIENT A & O X 2 (UNCERTAIN ABOUT CURRENT DAY / DATE). PATIENT OBSERVED AMBULATING ON UNIT UNASSISTED. IN NO ACUTE DISTRESS. 12/05/18 15:46 Vital Signs Temperature 96.1 F L 12/05/18 13:28 Pulse Rate 74 12/05/18 13:28 Respiratory Rate 18 12/05/18 13:28 Blood Pressure 127/84 12/05/18 13:28 O2 Sat by Pulse Oximetry (%) Laboratory Tests 12/05/18 12/05/18 07:00 07:00 WBC 5.2 RBC 5.05 Hgb 13.5 Hct 41.2 MCV 81.4 MCH 26.6 MCHC 32.7 RDW 15.6 Plt Count 306 MPV 7.8 Sodium 140 Potassium 4.3 Chloride 107 Carbon Dioxide 27 Anion Gap 6 L BUN 10.5 Creatinine 0.8 Est GFR (CKD-EPI)AfAm 129.51 Est GFR (CKD-EPI)NonAf 111.74 Random Glucose 88 Calcium 8.7 Total Bilirubin 0.3 AST 15 ALT 29 Alkaline Phosphatase 49 Total Protein 6.6 Albumin 3.5 LABS NOTED. RPR RESULT PENDING. 12/05/18 15:47 Assessment: 12/05/18 15:47 WITHDRAWAL SYMPTOMS. Plan: CONTINUE DETOX.
[2018-12-05] MEDS: THIAMINE HCL 100 MG TABLET (FP) PO SCH (22:27)
[2018-12-06] MEDS: chlordiazePOXIDE 5 MG CAPSULE PO SCH ×3 (06:33→22:49)
[2018-12-06] MEDS: PRENATAL VITAMINS W/ FOLIC ACID TABLET (FP) PO SCH (10:11)
[2018-12-06] MEDS: NICOTINE 14 MG/24 HOURS TOPICAL PATCH TD SCH (10:12)
--- NOTE | 2018-12-06 16:19 | PN ---
S CIWA - CIWA Score Nausea/Vomitin-Mild Nausea/No Vomiting Muscle Tremors: 2 Anxiety: 2 Agitation: 2 Paroxysmal Sweats: 1-Minimal Palms Moist Orientation: 0-Oriented Tacttile Disturbances: 1-Very Mild Itch/Numbness Auditory Disturbances: 1-Very Mild Visual Disturbances: 0-None Headache: 0-None Present CIWA-Ar Total Score: 10 BHS Progress Note (SOAP) Subjective: patient is doing well with librium detox protocol mild tremor less sweat Objective: 12/06/18 09:13 Vital Signs Temperature 97.2 F L 12/07/18 09:03 Pulse Rate 64 12/07/18 09:03 Respiratory Rate 18 12/07/18 09:03 Blood Pressure 121/70 12/07/18 09:03 O2 Sat by Pulse Oximetry (%) Laboratory Last Values WBC 5.2 K/mm3 (4.0-10.0) 12/05/18 07:00 RBC 5.05 M/mm3 (4.00-5.60) 12/05/18 07:00 Hgb 13.5 GM/dL (11.7-16.9) 12/05/18 07:00 Hct 41.2 % (35.4-49) 12/05/18 07:00 MCV 81.4 fl (80-96) 12/05/18 07:00 MCH 26.6 pg (25.7-33.7) 12/05/18 07:00 MCHC 32.7 g/dl (32.0-35.9) 12/05/18 07:00 RDW 15.6 % (11.9-15.9) 12/05/18 07:00 Plt Count 306 K/MM3 (134-434) 12/05/18 07:00 MPV 7.8 fl (7.5-11.1) 12/05/18 07:00 Sodium 140 mmol/L (136-145) 12/05/18 07:00 Potassium 4.3 mmol/L (3.5-5.1) 12/05/18 07:00 Chloride 107 mmol/L (98-107) 12/05/18 07:00 Carbon Dioxide 27 mmol/L (21-32) 12/05/18 07:00 Anion Gap 6 MMOL/L (8-16) L 12/05/18 07:00 BUN 10.5 mg/dL (7-18) 12/05/18 07:00 Creatinine 0.8 mg/dL (0.55-1.3) 12/05/18 07:00 Est GFR (CKD-EPI)AfAm 129.51 12/05/18 07:00 Est GFR (CKD-EPI)NonAf 111.74 12/05/18 07:00 Random Glucose 88 mg/dL (74-106) 12/05/18 07:00 Calcium 8.7 mg/dL (8.5-10.1) 12/05/18 07:00 Total Bilirubin 0.3 mg/dL (0.2-1) 12/05/18 07:00 AST 15 U/L (15-37) 12/05/18 07:00 ALT 29 U/L (13-61) 12/05/18 07:00 Alkaline Phosphatase 49 U/L (45-117) 12/05/18 07:00 Total Protein 6.6 g/dl (6.4-8.2) 12/05/18 07:00 Albumin 3.5 g/dl (3.4-5.0) 12/05/18 07:00 RPR Titer Nonreactive (NONREACTIVE) 12/05/18 07:00 lab noted 12/06/18 09:14 Assessment: 12/06/18 09:14 alcohol withdrawal sx 12/06/18 09:15 Plan: continue alcohol detox
--- NOTE | 2018-12-06 16:34 | HP ---
CIWA Score Nausea/Vomitin-No Nausea/No Vomiting Muscle Tremors: None Anxiety: 3 Agitation: 1-Slight > Activity Paroxysmal Sweats: No Perspiration Orientation: 2-Disoriented Date<2 days Tacttile Disturbances: 1-Very Mild Itch/Numbness Auditory Disturbances: 2-Mild Harshness/Frighten Visual Disturbances: 2-Mild Sensitivity Headache: 0-None Present CIWA-Ar Total Score: 11 - Admission Criteria OASAS Guidelines: Admission for Medically Managed Detox: Requires at least one of the followin. CIWA greater than 12 2. Seizures within the past 24 hours 3. Delirium tremens within the past 24 hours 4. Hallucinations within the past 24 hours 5. Acute intervention needed for co occurring medical disorder 6. Acute intervention needed for co occurring psychiatric disorder 7. Severe withdrawal that cannot be handled at a lower level of care (continued vomiting, continued diarrhea, abnormal vital signs) requiring intravenous medication and/or fluids 8. Admission ROS [facility]HS - HPI Chief Complaint: I REALLY NEED HELP Allergies/Adverse Reactions: Allergies Allergy/AdvReac Type Severity Reaction Status Date / Time iodine Allergy Severe Hives Verified 12/04/18 09:12 No Known Drug Allergies Allergy Unknown Verified 12/04/18 09:12 SEAFOOD Allergy Severe Swelling Uncoded 12/04/18 09:12 History of Present Illness: ARSEN HAS BEEN USING ALCOHOL SINCE AGE 12 DENIES ABILITY TO DECREASE USE HAS BEEN "IN AND OUT OF FACILITIES" FOR YEARS WITHOUT "COMMITING" TO TREATMENT CAME TODAY TO "REALLY DO THIS" - Ebola screening Have you traveled outside of the country in the last 21 days: No (N) Have you had contact with anyone from an Ebola affected area: No Do you have a fever: No - Review of Systems Constitutional: Malaise, Changes in sleep EENT: reports: No Symptoms Reported Respiratory: reports: No Symptoms reported Cardiac: reports: No Symptoms Reported GI: reports: No Symptoms Reported : reports: No Symptoms Reported Musculoskeletal: reports: No Symptoms Reported Integumentary: reports: No Symptoms Reported Neuro: reports: No Symptoms reported Endocrine: reports: No Symptoms Reported Hematology: reports: No Symptoms Reported Psychiatric: reports: Anxious Patient History - Patient Medical History Hx Anemia: No Hx Asthma: No Hx Chronic Obstructive Pulmonary Disease (COPD): No Hx Cancer: No Hx Cardiac Disorders: No Hx Congestive Heart Failure: No Hx Hypertension: No Hx Hypercholesterolemia: No Hx Pacemaker: No HX Cerebrovascular Accident: No Hx Seizures: No Hx Dementia: No (feels that he forgets details ) Hx Diabetes: No Hx Gastrointestinal Disorders: No Hx Liver Disease: No Hx Genitourinary Disorders: No Hx Sexually Transmitted Disorders: No Hx Renal Disease (ESRD): No Hx Thyroid Disease: No Hx Human Immunodeficiency Virus (HIV): No (NEGATIVE HX) Hx Hepatitis C: No Hx Depression: No Hx Suicide Attempt: No Hx Bipolar Disorder: No (ON PROLIXIN) Hx Schizophrenia: Yes - Patient Surgical History Past Surgical History: Yes Hx Neurologic Surgery: No Hx Cataract Extraction: No Hx Cardiac Surgery: No Hx Lung Surgery: No Hx Breast Surgery: No Hx Breast Biopsy: No Hx Abdominal Surgery: No Hx Appendectomy: No Hx Cholecystectomy: No Hx Genitourinary Surgery: No Hx Section: No Hx Orthopedic Surgery: No Other Surgical History: stitchen on forehead due to trauma in 2010 Anesthesia Reaction: No - PPD History Date: 05/07/18 Results: 0 mm - Reproductive History Patient : No - Smoking Cessation Smoking history: Current every day smoker Have you smoked in the past 12 months: Yes Aproximately how many cigarettes per day: 10 Hx Chewing Tobacco Use: No Initiated information on smoking cessation: Yes 'Breaking Loose' booklet given: 12/06/18 - Substances abused Alcohol Substance route: Oral Frequency: Daily Amount used: 4 pints of vodka Age of first use: 12 Date of last use: 12/04/18 Methamphetamine Substance route: Oral Frequency: Daily Amount used: 3 pills Age of first use: 25 Date of last use: 10/09/18 Family Disease History - Family Disease History Family Disease History: Diabetes: Grandparent (ALCOHOLISM), Father (ALCOHOLISM) , Mother (ALCOHOLISM) Admission Physical Exam BHS - Vital Signs Vital Signs: Vital Signs - 24 hr 12/05/18 12/05/18 12/06/18 17:39 21:41 00:12 Temperature 97.9 F 99.9 F H Pulse Rate 85 80 Respiratory 18 16 18 Rate Blood Pressure 117/77 116/69 12/06/18 12/06/18 12/06/18 03:30 06:05 09:16 Temperature 98.3 F 97.6 F Pulse Rate 79 93 H Respiratory 18 18 20 Rate Blood Pressure 127/84 126/69 12/06/18 13:17 Temperature 97.1 F L Pulse Rate 74 Respiratory 18 Rate Blood Pressure 120/79 - Physical General Appearance: Yes: Irritable, Sweating, Anxious HEENTM: Yes: EOMI Respiratory: Yes: Lungs Clear, Normal Breath Sounds Neck: Yes: No masses,lesions,Nodules Breast: Yes: Breast Exam Deferred Cardiology: Yes: Regular Rate, S1, S2 Abdominal: Yes: Within Normal Limits Genitourinary: Yes: Within Normal Limits Back: Yes: Within Normal Limits Musculoskeletal: Yes: Within Normal Limits Extremities: Yes: Within Normal Limits 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: Yes: loss prevention officer II-XII NML intact, Fully Oriented, Alert, Motor Strength / - Diagnostic (1) Alcohol dependence with uncomplicated withdrawal Current Visit: Yes Status: Acute (2) Schizoaffective disorder Current Visit: Yes Status: Chronic Qualifiers: Schizoaffective disorder type: unspecified Qualified Code(s): F25.9 - Schizoaffective disorder, unspecified Cleared for Admission S - Detox or Rehab [facility] Level of Care: Medically Supervised Breathalyzer - Breathalyzer Breathalyzer: 0 Urine Drug Screen - Test Device Lot number: [id number] Expiration date: 09/14/19 - Control Is test valid?: Yes - Results Drug screen NEGATIVE: Yes Inpatient Rehab Admission - Rehab Decision to Admit Inpatient rehab admission?: No
--- NOTE | 2018-12-06 18:20 | CONSULT ---
[facility] Psychiatric Consult - Data Date of interview: 12/06/18 Admission source: [facility] Identifying data: Patient is approached for psychiatric evaluation. Mr Bill declines. " I did not ask to see a psychiatrist. I don't need to talk to one." Found resting in bed. Fully awake, calm and polite. Nursing staff is made aware of patient's refusal of psychiatric interview.
[2018-12-06] MEDS: THIAMINE HCL 100 MG TABLET (FP) PO SCH (22:49)
[2018-12-07] MEDS ORDERED: chlordiazePOXIDE HCL 10 MG CAPSULE PO PRN
[2018-12-07] MEDS ORDERED: chlordiazePOXIDE HCL 10 MG CAPSULE PO SCH (05:00)
--- NOTE | 2018-12-07 08:58 | HP ---
CIWA Score Nausea/Vomitin-No Nausea/No Vomiting Muscle Tremors: None Anxiety: 3 Agitation: 1-Slight > Activity Paroxysmal Sweats: No Perspiration Orientation: 2-Disoriented Date<2 days Tacttile Disturbances: 1-Very Mild Itch/Numbness Auditory Disturbances: 2-Mild Harshness/Frighten Visual Disturbances: 2-Mild Sensitivity Headache: 2-Mild CIWA-Ar Total Score: 13 - Admission Criteria OASAS Guidelines: Admission for Medically Managed Detox: Requires at least one of the followin. CIWA greater than 12 2. Seizures within the past 24 hours 3. Delirium tremens within the past 24 hours 4. Hallucinations within the past 24 hours 5. Acute intervention needed for co occurring medical disorder 6. Acute intervention needed for co occurring psychiatric disorder 7. Severe withdrawal that cannot be handled at a lower level of care (continued vomiting, continued diarrhea, abnormal vital signs) requiring intravenous medication and/or fluids 8. Admission ROS S - HPI Chief Complaint: alcohol withdrawal sx Allergies/Adverse Reactions: Allergies Allergy/AdvReac Type Severity Reaction Status Date / Time iodine Allergy Severe Hives Verified 12/04/18 09:12 No Known Drug Allergies Allergy Unknown Verified 12/04/18 09:12 SEAFOOD Allergy Severe Swelling Uncoded 12/04/18 09:12 History of Present Illness: 38 years old male met criteria for alcohol detox admission drinking alcohol since age 12, drinking 4000 L volka daily last drank 12/04/18 denies surgery denies medical issues admitted to detox at [facility] "[facility]" longest sobriety 8 years supportive group benefit the sobriety Exam Limitations: No Limitations - Ebola screening Have you traveled outside of the country in the last 21 days: No (N) Have you had contact with anyone from an Ebola affected area: No Do you have a fever: No - Review of Systems Constitutional: Chills, Changes in sleep EENT: reports: No Symptoms Reported Respiratory: reports: No Symptoms reported Cardiac: reports: Other (muscle chest wall pain from tremor) GI: reports: Nausea, Poor Fluid Intake, Abdominal cramping : reports: No Symptoms Reported Musculoskeletal: reports: Muscle Pain Integumentary: reports: No Symptoms Reported Neuro: reports: Tremors Endocrine: reports: No Symptoms Reported Hematology: reports: No Symptoms Reported Psychiatric: reports: Judgement Intact, Mood/Affect Appropiate, Orientated x3, Anxious Other Systems: Reviewed and Negative Patient History - Patient Medical History Hx Anemia: No Hx Asthma: No Hx Chronic Obstructive Pulmonary Disease (COPD): No Hx Cancer: No Hx Cardiac Disorders: No Hx Congestive Heart Failure: No Hx Hypertension: No Hx Hypercholesterolemia: No Hx Pacemaker: No HX Cerebrovascular Accident: No Hx Seizures: No Hx Dementia: No (feels that he forgets details ) Hx Diabetes: No Hx Gastrointestinal Disorders: No Hx Liver Disease: No Hx Genitourinary Disorders: No Hx Sexually Transmitted Disorders: No Hx Renal Disease (ESRD): No Hx Thyroid Disease: No Hx Human Immunodeficiency Virus (HIV): No (NEGATIVE HX) Hx Hepatitis C: No Hx Depression: No Hx Suicide Attempt: No Hx Bipolar Disorder: No Hx Schizophrenia: Yes (prolixin po last dose 5 days ago) - Patient Surgical History Past Surgical History: Yes Hx Neurologic Surgery: No Hx Cataract Extraction: No Hx Cardiac Surgery: No Hx Lung Surgery: No Hx Breast Surgery: No Hx Breast Biopsy: No Hx Abdominal Surgery: No Hx Appendectomy: No Hx Cholecystectomy: No Hx Genitourinary Surgery: No Hx Section: No Hx Orthopedic Surgery: No Other Surgical History: stitchen on forehead due to trauma in 2010 Anesthesia Reaction: No - PPD History Previous Implant?: Yes Documented Results: Negative w/proof Implanted On Prior [facility] Admission?: Yes Date: 05/07/18 Results: 0 mm PPD to be Administered?: No - Reproductive History Patient : No - Smoking Cessation Smoking history: Current every day smoker Have you smoked in the past 12 months: Yes Aproximately how many cigarettes per day: 10 Hx Chewing Tobacco Use: No Initiated information on smoking cessation: Yes 'Breaking Loose' booklet given: 12/07/18 - Substance & Tx. History Hx Alcohol Use: Yes Hx Substance Use: Yes Substance Use Type: Alcohol Hx Substance Use Treatment: Yes (09/2018 [facility] - Substances abused Alcohol Substance route: Oral Frequency: Daily Amount used: 4 pints of vodka Age of first use: 12 Date of last use: 12/04/18 Methamphetamine Substance route: Oral Frequency: Daily Amount used: 3 pills Age of first use: 25 Date of last use: 10/09/18 Family Disease History - Family Disease History Family Disease History: Diabetes: Grandparent (ALCOHOLISM), Father (ALCOHOLISM) , Mother (ALCOHOLISM), Heart Disease: Brother Admission Physical Exam [facility] - Vital Signs Vital Signs: Vital Signs - 24 hr 12/06/18 12/06/18 12/06/18 09:16 13:17 17:43 Temperature 97.6 F 97.1 F L 99.7 F H Pulse Rate 93 H 74 83 Respiratory 20 18 16 Rate Blood Pressure 126/69 120/79 132/74 12/06/18 12/07/18 12/07/18 21:10 00:30 03:30 Temperature 97.6 F Pulse Rate 70 Respiratory 18 16 18 Rate Blood Pressure 120/86 12/07/18 06:22 Temperature 98 F Pulse Rate 69 Respiratory 16 Rate Blood Pressure 134/85 - Physical General Appearance: Yes: Nourished, Tremorous, Sweating, Anxious HEENTM: Yes: Within Normal Limits, Hearing grossly Normal, Normocephalic, Normal Voice Respiratory: Yes: Chest Non-Tender, Lungs Clear, No Respiratory Distress, No Accessory Muscle Use Neck: Yes: Supple, Trachea in good position Breast: Yes: Breasts Symetrical, No Discharge Cardiology: Yes: Regular Rhythm, Regular Rate, S1, S2 Abdominal: Yes: Non Tender, Flat, Soft Genitourinary: Yes: Within Normal Limits Back: Yes: Normal Inspection Musculoskeletal: Yes: full range of Motion, Gait Steady, Muscle Pain Extremities: Yes: Normal Inspection, Normal Range of Motion, Non-Tender, Tremors 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: Yes: Fully Oriented, Alert, Motor Strength 5/5, Normal Response, Depressed Affect Integumentary: Yes: Normal Color, Warm Lymphatic: Yes: Within Normal Limits - Diagnostic (1) Alcohol dependence with uncomplicated withdrawal Current Visit: Yes Status: Acute (2) Schizoaffective disorder Current Visit: Yes Status: Suspected Qualifiers: Schizoaffective disorder type: unspecified Qualified Code(s): F25.9 - Schizoaffective disorder, unspecified Cleared for Admission [facility] - Detox or Rehab [facility] Level of Care: Medically Managed Detox Regimen/Protocol: Librium Claeared for Rehab Admission: No Breathalyzer - Breathalyzer Breathalyzer: 0 Urine Drug Screen - Test Device Lot number: [id number] Expiration date: 09/14/19 - Control Is test valid?: Yes - Results Drug screen NEGATIVE: Yes Inpatient Rehab Admission - Rehab Decision to Admit Inpatient rehab admission?: No
[2018-12-07 09:04] VITALS: BP 121/70; PULSE 64; TEMP 97.2
--- NOTE | 2018-12-07 11:00 | DS ---
[facility] Detox Discharge Summary Admission Date: 12/04/18 Discharge Date: 12/07/18 - History Present History: Alcohol Dependence Additional Comments: 38 years old male admitted on 12/04/18 for acute alcohol withdrawal sx management no complication throughout the detox stay doing well with librium detox regimen feeling better today prefers return to [facility] continue prolixin "by mouth" patient is alert oriented x 2 clear lung bilaterally S1S2 abdomen soft none tenderness denies hallucinations denies suicidal ideation patient reported that he is with [facility] for "a while" "they are nice" Pertinent Past History: asthma gerd hypertension schizophrenia - Physical Exam Results Vital Signs: Vital Signs Temperature 97.2 F L 12/07/18 09:03 Pulse Rate 64 12/07/18 09:03 Respiratory Rate 18 12/07/18 09:03 Blood Pressure 121/70 12/07/18 09:03 O2 Sat by Pulse Oximetry (%) Pertinent Admission Physical Exam Findings: alcohol withdrawal sx Laboratory Last Values WBC 5.2 K/mm3 (4.0-10.0) 12/05/18 07:00 RBC 5.05 M/mm3 (4.00-5.60) 12/05/18 07:00 Hgb 13.5 GM/dL (11.7-16.9) 12/05/18 07:00 Hct 41.2 % (35.4-49) 12/05/18 07:00 MCV 81.4 fl (80-96) 12/05/18 07:00 MCH 26.6 pg (25.7-33.7) 12/05/18 07:00 MCHC 32.7 g/dl (32.0-35.9) 12/05/18 07:00 RDW 15.6 % (11.9-15.9) 12/05/18 07:00 Plt Count 306 K/MM3 (134-434) 12/05/18 07:00 MPV 7.8 fl (7.5-11.1) 12/05/18 07:00 Sodium 140 mmol/L (136-145) 12/05/18 07:00 Potassium 4.3 mmol/L (3.5-5.1) 12/05/18 07:00 Chloride 107 mmol/L (98-107) 12/05/18 07:00 Carbon Dioxide 27 mmol/L (21-32) 12/05/18 07:00 Anion Gap 6 MMOL/L (8-16) L 12/05/18 07:00 BUN 10.5 mg/dL (7-18) 12/05/18 07:00 Creatinine 0.8 mg/dL (0.55-1.3) 12/05/18 07:00 Est GFR (CKD-EPI)AfAm 129.51 12/05/18 07:00 Est GFR (CKD-EPI)NonAf 111.74 12/05/18 07:00 Random Glucose 88 mg/dL (74-106) 12/05/18 07:00 Calcium 8.7 mg/dL (8.5-10.1) 12/05/18 07:00 Total Bilirubin 0.3 mg/dL (0.2-1) 12/05/18 07:00 AST 15 U/L (15-37) 12/05/18 07:00 ALT 29 U/L (13-61) 12/05/18 07:00 Alkaline Phosphatase 49 U/L (45-117) 12/05/18 07:00 Total Protein 6.6 g/dl (6.4-8.2) 12/05/18 07:00 Albumin 3.5 g/dl (3.4-5.0) 12/05/18 07:00 RPR Titer Nonreactive (NONREACTIVE) 12/05/18 07:00 lab noted - Treatment Hospital Course: Detox Protocol Followed, Detoxed Safely, Responded well, Discharged Condition Good, Rehab Referral Accepted Patient has Accepted a Rehab Referral to: [facility] - Medication Discharge Medications: Ambulatory Orders Fluphenazine HCl [Prolixin -] 5 mg PO BID 12/04/18 Risperidone [Risperdal] 2 mg PO BID 12/04/18 - Diagnosis (1) Alcohol dependence with uncomplicated withdrawal Status: Acute (2) Schizoaffective disorder Status: Suspected Qualifiers: Schizoaffective disorder type: unspecified Qualified Code(s): F25.9 - Schizoaffective disorder, unspecified - AMA Did Patient Leave Against Medical Advice: No
[2018-12-08] MEDS ORDERED: chlordiazePOXIDE HCL 10 MG CAPSULE PO ONE (05:00)
== END 2018-12-07 09:40 | disposition home or self-care (01) | DRG 897 ==
LOC: YASAS 08:46 → Y3N 10:31
PROVIDERS: ADMIT Surgery; ATTEND Surgery
PROC: HZ2ZZZZ Detoxification Services for Substance Abuse Treatment (ICD-10-PCS; principal; 2018-12-04)
DX: F19.230 Other psychoactive substance dependence with withdrawal, uncomplicated (principal); F10.230 Alcohol dependence with withdrawal, uncomplicated; F17.210 Nicotine dependence, cigarettes, uncomplicated; F25.9 Schizoaffective disorder, unspecified; Z91.013 Allergy to seafood
CPT/HCPCS: 36415; 80053; 85027; 86593

== ENCOUNTER 2018-12-17 08:20 | Inpatient (IN) | payer OTHER | END 2018-12-18 09:26 | disposition home or self-care (01) | LOC: YASAS 08:20 → Y6N 10:16 | DX: F10.230 Alcohol dependence with withdrawal, uncomplicated (principal) ==

== ENCOUNTER 2019-02-09 08:22 | Inpatient (IN) | payer OTHER ==
[2019-02-09 08:47] VITALS: BMI 29.2
--- NOTE | 2019-02-09 11:34 | HP ---
CIWA Score Nausea/Vomitin-Mild Nausea/No Vomiting Muscle Tremors: 1-None Visible, but [place] Anxiety: 4-Mod. Anxious/Guarded Agitation: 1-Slight > Activity Paroxysmal Sweats: 1-Minimal Palms Moist Orientation: 0-Oriented Tacttile Disturbances: 1-Very Mild Itch/Numbness Auditory Disturbances: 0-None Visual Disturbances: 2-Mild Sensitivity Headache: 2-Mild CIWA-Ar Total Score: 13 - Admission Criteria OASAS Guidelines: Admission for Medically Managed Detox: Requires at least one of the followin. CIWA greater than 12 2. Seizures within the past 24 hours 3. Delirium tremens within the past 24 hours 4. Hallucinations within the past 24 hours 5. Acute intervention needed for co occurring medical disorder 6. Acute intervention needed for co occurring psychiatric disorder 7. Severe withdrawal that cannot be handled at a lower level of care (continued vomiting, continued diarrhea, abnormal vital signs) requiring intravenous medication and/or fluids 8. Admission ROS S - HPI Allergies/Adverse Reactions: Allergies Allergy/AdvReac Type Severity Reaction Status Date / Time iodine Allergy Severe Hives Verified 02/09/19 08:42 SEAFOOD Allergy Severe Swelling Uncoded 02/09/19 08:42 History of Present Illness: patient here requesting detox from etoh use , reports 1/5th of liquor /day relapsed 3 d . after d/c from this facility , sober x 3 years while incarcerated for DV released June 2017 , denies current parole / probation , latest etoh use this morning, first age of use 13 , prior detox at this facility December 2018 . denies illicits. tobacco : 1 ppd since age 13 , does not want nrt PMHX : denies PSHx : denies PSych : denies Meds : denies Shx : lives w/ mother , unemployed Exam Limitations: Clinical Condition - Ebola screening Have you traveled outside of the country in the last 21 days: No Have you had contact with anyone from an Ebola affected area: No Do you have a fever: No - Review of Systems Constitutional: Loss of Appetite EENT: reports: See HPI Respiratory: reports: No Symptoms reported Cardiac: reports: No Symptoms Reported GI: reports: Nausea : reports: No Symptoms Reported Musculoskeletal: reports: No Symptoms Reported Integumentary: reports: No Symptoms Reported Neuro: reports: Headache Endocrine: reports: No Symptoms Reported Psychiatric: reports: Orientated x3, Anxious Patient History - Patient Medical History Hx Anemia: No Hx Asthma: No Hx Chronic Obstructive Pulmonary Disease (COPD): No Hx Cancer: No Hx Cardiac Disorders: No Hx Congestive Heart Failure: No Hx Hypertension: No Hx Hypercholesterolemia: No Hx Pacemaker: No HX Cerebrovascular Accident: No Hx Seizures: Yes (thinks he had a seizure October 2018) Hx Dementia: No (feels that he forgets details ) Hx Diabetes: No Hx Gastrointestinal Disorders: No Hx Liver Disease: No Hx Genitourinary Disorders: No Hx Sexually Transmitted Disorders: No Hx Renal Disease (ESRD): No Hx Thyroid Disease: No Hx Human Immunodeficiency Virus (HIV): No (NEGATIVE HX) Hx Hepatitis C: No Hx Depression: No Hx Suicide Attempt: Yes (long time ago) Hx Bipolar Disorder: No Hx Schizophrenia: Yes (prolixin im 12/15/18; hospitalized about 15 years ago) - Patient Surgical History Past Surgical History: Yes Hx Neurologic Surgery: No Hx Cataract Extraction: No Hx Cardiac Surgery: No Hx Lung Surgery: No Hx Breast Surgery: No Hx Breast Biopsy: No Hx Abdominal Surgery: No Hx Appendectomy: No Hx Cholecystectomy: No Hx Genitourinary Surgery: No Hx Section: No Hx Orthopedic Surgery: No Other Surgical History: stitches on forehead due to trauma in 2010 Anesthesia Reaction: No - PPD History Date: 05/07/18 Results: 0 mm - Smoking Cessation Smoking history: Current every day smoker Have you smoked in the past 12 months: Yes Aproximately how many cigarettes per day: 10 Hx Chewing Tobacco Use: No Initiated information on smoking cessation: No - Substances abused Alcohol Substance route: Oral Frequency: Daily Amount used: 5 pints of vodka Age of first use: 12 Date of last use: 02/09/19 Methamphetamine Substance route: Oral Frequency: Daily Amount used: 3 pills Age of first use: 25 Date of last use: 10/09/18 Marijuana/Hashish Frequency: No use in 30 days Amount used: 1 ounce Age of first use: 12 Date of last use: 12/14/18 Admission Physical Exam BHS - Vital Signs Vital Signs: Vital Signs - 24 hr 02/09/19 08:43 Temperature 97.7 F Pulse Rate 62 Respiratory 20 Rate Blood Pressure 136/72 - Physical General Appearance: Yes: Mild Distress, Anxious, Other (restless, fidgeting) HEENTM: Yes: EOMI, Hearing grossly Normal, Normocephalic, Normal Voice Respiratory: Yes: Chest Non-Tender, Lungs Clear, Normal Breath Sounds, No Respiratory Distress, No Accessory Muscle Use Neck: Yes: No masses,lesions,Nodules, Trachea in good position Cardiology: Yes: Regular Rhythm, Regular Rate, S1, S2 Abdominal: Yes: Non Tender, Soft Musculoskeletal: Yes: Gait Steady Extremities: Yes: Normal Range of Motion, Non-Tender 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: Yes: Fully Oriented, Alert, Motor Strength 5/5, Depressed Affect Integumentary: Yes: Warm - Diagnostic (1) Alcohol dependence Current Visit: No Status: Acute Breathalyzer - Breathalyzer Breathalyzer: 0 Urine Drug Screen - Test Device Lot number: [id number] Expiration date: 10/14/20 - Control Is test valid?: Yes - Results Drug screen NEGATIVE: Yes Urine drug screen results: THC-Marijuana, BZO-Benzodiazepines Inpatient Rehab Admission - Rehab Decision to Admit Inpatient rehab admission?: No
[2019-02-09] MEDS ORDERED: diazePAM 5 MG TABLET PO PRN (11:59)
[2019-02-09] MEDS ORDERED: IBUPROFEN 400 MG TABLET (FP) PO PRN (11:59)
[2019-02-09] MEDS ORDERED: BISMUTH SUBSALICYLATE 262 MG/15 ML BTL PO PRN (11:59)
[2019-02-09] MEDS ORDERED: MELATONIN 5 MG TABLETS PO PRN (11:59)
[2019-02-09] MEDS ORDERED: ACETAMINOPHEN 325 MG TABLET (FP) PO PRN ×2 (11:59)
[2019-02-09] MEDS ORDERED: MAGNESIUM CITRATE 300 ML BOTTLE PO PRN (11:59)
[2019-02-09] MEDS ORDERED: hydrOXYzine PAMOATE 25 MG CAPSULE (FP) PO PRN (11:59)
[2019-02-09] MEDS ORDERED: METHOCARBAMOL 500 MG TABLET PO PRN (11:59)
[2019-02-09] MEDS ORDERED: MENTHOL/PHENOL 1 EACH UD MM PRN (11:59)
[2019-02-09] MEDS ORDERED: MAGNESIUM HYDROX 2400MG/30ML ORAL SUSPENSION 30 ML CUP PO PRN (11:59)
[2019-02-09] MEDS ORDERED: MAG HYDROX/AL HYDROX/SIMETH 30 ML UNIT-DOSE CUP PO PRN (11:59)
--- NOTE | 2019-02-09 12:52 | PN ---
S Progress Note Note: change admission lab work to today
[2019-02-09 14:33] LABS: HEMATOCRIT 39.4 % (35.4-49); HEMOGLOBIN 12.8 GM/dL (11.7-16.9); MCH 26.6 pg (25.7-33.7); MCHC 32.5 g/dl (32.0-35.9); MEAN CELL VOLUME 81.7 fl (80-96); MEAN PLT VOLUME 7.9 fl (7.5-11.1); PLATELET COUNT 310 K/MM3 (134-434); RBC 4.83 M/mm3 (4.00-5.60); RDW 15.3 % (11.9-15.9); WHITE BLOOD COUNT 4.4 K/mm3 (4.0-10.0)
[2019-02-09] MEDS: diazePAM 5 MG TABLET PO SCH ×2 (14:50→23:00)
[2019-02-09 14:51] LABS: ALBUMIN 3.7 g/dl (3.4-5.0); BILIRUBIN,TOTAL 0.2 mg/dL (0.2-1); BLOOD UREA NITROGEN 8.2 mg/dL (7-18); CALCIUM 8.9 mg/dL (8.5-10.1); CREATININE 0.8 mg/dL (0.55-1.3); POTASSIUM 3.5 mmol/L (3.5-5.1); TOT PROT 6.7 g/dl (6.4-8.2)
[2019-02-09] MEDS: THIAMINE HCL 100 MG TABLET (FP) PO SCH (23:00)
[2019-02-10] MEDS: diazePAM 5 MG TABLET PO SCH ×3 (06:56→22:59)
[2019-02-10] MEDS: PRENATAL VITAMINS W/ FOLIC ACID TABLET (FP) PO SCH (10:13)
--- NOTE | 2019-02-10 13:22 | CONSULT ---
[facility] Psychiatric Consult - Data Date of interview: 02/10/19 Admission source: [facility] Identifying data: Readmission to [facility] for this 39 y/o AA male self- referred for detoxification. NALDO issues : alcohol, cannabis, cocaine. Interviewed at [address] [place] [address]. Patient is single, no children, homeless, unemployed and supported on welfare (self-report). Substance Abuse History: Discussed in this session. Details in current [facility] report as follows : Smoking history: Current every day smoker. Have you smoked in the past 12 months: Yes. Aproximately how many cigarettes per day: 10. Hx Chewing Tobacco Use: No. Initiated information on smoking cessation: No. - Substances abused. Alcohol. Substance route: Oral. Frequency: Daily. Amount used: 5 pints of vodka. Age of first use: 12. Date of last use: . Methamphetamine. Substance route: Oral. Frequency: Daily. Amount used : 3 pills. Age of first use: 25. Date of last use: 10/09/18. Marijuana/ Hashish. Frequency: No use in 30 days. Amount used: 1 ounce. Age of first use : 12. Date of last use: 12/14/18 Medical History: Patient endorses good general health. Psychiatric History: First psychiatric contact occurred approximately 20 years ago (auditory hallucinations, persecutory delusions) with involuntary commitment at [facility] in [facility]. Multiple subsequent psychiatric hospitalizations followed ([facility], [facility] , [facility]). Patient has been diagnosed with Schizophrenia vs Schizoaffective Disorder. Maintained on prolixin decanoate 25 mg IM monthly ( last dispensed on 02/04/19 as per self-report). Mr Bill gets his psychiatric outpatient services at [facility]. Patient denies history of suicide attempts. Physical/Sexual Abuse/Trauma History: Patient denies. Additional Comment: Urine drug screen results: THC-Marijuana, BZO- Benzodiazepines. Noted. Mental Status Exam - Mental Status Exam Alert and Oriented to: Time, Place, Person Cognitive Function: Grossly Intact Patient Appearance: Well Groomed Mood: Withdrawn Affect: Blunted Patient Behavior: Cooperative Speech Pattern: Clear Voice Loudness: Normal Thought Process: Goal Oriented Thought Disorder: Bizarre Hallucinations: Denies Suicidal Ideation: Denies Homicidal Ideation: Denies Insight/Judgement: Poor Sleep: Well Appetite: Good Muscle strength/Tone: Normal Gait/Station: Normal Psychiatric Findings - Problem List ([place] 1, 2,3) (1) Alcohol dependence with uncomplicated withdrawal Current Visit: Yes Status: Acute (2) Nicotine dependence Current Visit: Yes Status: Chronic Qualifiers: Nicotine product type: cigarettes Substance use status: uncomplicated Qualified Code(s): F17.210 - Nicotine dependence, cigarettes, uncomplicated (3) Cannabis abuse Current Visit: Yes Status: Chronic (4) Schizoaffective disorder Current Visit: Yes Status: Chronic Qualifiers: Schizoaffective disorder type: unspecified Qualified Code(s): F25.9 - Schizoaffective disorder, unspecified Comment: As per history. On prolixin decanoate 25 mg IM (dispensed on 02/04/19 according to patient). (5) Substance induced mood disorder Current Visit: Yes Status: Chronic - Initial Treatment Plan Initial Treatment Plan: Psychoeducation. Sleep hygiene. Detoxification. Support. AA meetings. Observation.
--- NOTE | 2019-02-10 17:08 | PN ---
S CIWA - CIWA Score Nausea/Vomitin-No Nausea/No Vomiting Muscle Tremors: 4-Moderate,w/Arms Extend Anxiety: 3 Agitation: 0-Normal Activity Paroxysmal Sweats: No Perspiration Orientation: 0-Oriented Tacttile Disturbances: 1-Very Mild Itch/Numbness Auditory Disturbances: 0-None Visual Disturbances: 3-Moderate Sensitivity Headache: 0-None Present CIWA-Ar Total Score: 11 BHS Progress Note (SOAP) Subjective: Tremors, Anxious, Sensitivity To Light. Objective: PATIENT A & O X 3. IN NO ACUTE DISTRESS. 02/10/19 17:07 Vital Signs Temperature 97.3 F L 02/10/19 14:14 Pulse Rate 61 02/10/19 14:14 Respiratory Rate 18 02/10/19 14:14 Blood Pressure 129/76 02/10/19 14:14 O2 Sat by Pulse Oximetry (%) Laboratory Tests 02/09/19 02/09/19 02/09/19 13:15 13:15 13:15 WBC 4.4 RBC 4.83 Hgb 12.8 Hct 39.4 MCV 81.7 MCH 26.6 MCHC 32.5 RDW 15.3 Plt Count 310 MPV 7.9 Sodium 139 Potassium 3.5 Chloride 104 Carbon Dioxide 28 Anion Gap 8 BUN 8.2 Creatinine 0.8 Est GFR (CKD-EPI)AfAm 128.60 Est GFR (CKD-EPI)NonAf 110.96 Random Glucose 92 Calcium 8.9 Total Bilirubin 0.2 AST 19 ALT 33 Alkaline Phosphatase 57 Total Protein 6.7 Albumin 3.7 RPR Titer Nonreactive LABS NOTED. Assessment: 02/10/19 17:07 WITHDRAWAL SYMPTOMS. Plan: CONTINUE DETOX.
[2019-02-10] MEDS: THIAMINE HCL 100 MG TABLET (FP) PO SCH (22:59)
[2019-02-11] MEDS: diazePAM 5 MG TABLET PO SCH ×2 (06:07→17:58)
[2019-02-11] MEDS: PRENATAL VITAMINS W/ FOLIC ACID TABLET (FP) PO SCH (10:17)
--- NOTE | 2019-02-11 17:19 | PN ---
S CIWA - CIWA Score Nausea/Vomitin-No Nausea/No Vomiting Muscle Tremors: 2 Anxiety: 2 Agitation: 2 Paroxysmal Sweats: No Perspiration Orientation: 0-Oriented Tacttile Disturbances: 0-None Auditory Disturbances: 0-None Visual Disturbances: 0-None Headache: 0-None Present CIWA-Ar Total Score: 6 BHS Progress Note (SOAP) Subjective: Tremors, Anxious. Patient reports that current Withdrawal / Detox symptoms are minimal in degree and that he feels well overall. Objective: PATIENT A & O X 3, OBSERVED AMBULATING ON DETOX UNIT UNASSISTED. IN NO ACUTE DISTRESS. 02/11/19 17:21 Vital Signs Temperature 97 F L 02/11/19 17:15 Pulse Rate 66 02/11/19 17:15 Respiratory Rate 18 02/11/19 17:15 Blood Pressure 117/74 02/11/19 17:15 O2 Sat by Pulse Oximetry (%) Laboratory Tests 02/09/19 02/09/19 02/09/19 13:15 13:15 13:15 WBC 4.4 RBC 4.83 Hgb 12.8 Hct 39.4 MCV 81.7 MCH 26.6 MCHC 32.5 RDW 15.3 Plt Count 310 MPV 7.9 Sodium 139 Potassium 3.5 Chloride 104 Carbon Dioxide 28 Anion Gap 8 BUN 8.2 Creatinine 0.8 Est GFR (CKD-EPI)AfAm 128.60 Est GFR (CKD-EPI)NonAf 110.96 Random Glucose 92 Calcium 8.9 Total Bilirubin 0.2 AST 19 ALT 33 Alkaline Phosphatase 57 Total Protein 6.7 Albumin 3.7 RPR Titer Nonreactive LABS NOTED. 02/11/19 17:21 Assessment: 02/11/19 17:21 WITHDRAWAL SYMPTOMS. Plan: CONTINUE DETOX. PATIENT SCHEDULED FOR D/C FROM DETOX UNIT TOMORROW.
[2019-02-11] MEDS: THIAMINE HCL 100 MG TABLET (FP) PO SCH (22:25)
[2019-02-12] MEDS ORDERED: diazePAM 5 MG TABLET PO ONE (06:00)
[2019-02-12 06:22] VITALS: BP 142/78; PULSE 76; TEMP 97
--- NOTE | 2019-02-12 12:16 | DS ---
[facility] Detox Discharge Summary Admission Date: 02/09/19 Discharge Date: 02/12/19 - History Present History: Alcohol Dependence Additional Comments: did well with valium detox regimen no complication through out the detox stay seen by psychiatrist no medical intervention patient is alrt oriented x 3 cardiac S1S2 regular rate rhythm respiratory clear bilaterally on auscultation - Physical Exam Results Vital Signs: Vital Signs Temperature 97 F L 02/12/19 06:21 Pulse Rate 76 02/12/19 06:21 Respiratory Rate 16 02/12/19 06:21 Blood Pressure 142/78 02/12/19 06:21 O2 Sat by Pulse Oximetry (%) Pertinent Admission Physical Exam Findings: revelation - Treatment Hospital Course: Detox Protocol Followed, Detoxed Safely, Responded well, Discharged Condition Good, Rehab Referral Accepted - Medication Discharge Medications: Ambulatory Orders Fluphenazine HCl Injection [Prolixin Injection -] 2.5 ml IM MONTHLY 12/17/18 - Diagnosis (1) Alcohol dependence with uncomplicated withdrawal Status: Acute (2) Asthma Status: Chronic Qualifiers: Asthma severity: mild Asthma persistence: intermittent Asthma complication type: with status asthmaticus Qualified Code(s): J45.22 - Mild intermittent asthma with status asthmaticus (3) GERD (gastroesophageal reflux disease) Status: Chronic Qualifiers: Esophagitis presence: esophagitis presence not specified Qualified Code(s) : K21.9 - Gastro-esophageal reflux disease without esophagitis (4) HTN (hypertension) Status: Chronic Qualifiers: Hypertension type: essential hypertension Qualified Code(s): I10 - Essential (primary) hypertension (5) Nicotine dependence Status: Acute Qualifiers: Nicotine product type: cigarettes Substance use status: in withdrawal Qualified Code(s): F17.213 - Nicotine dependence, cigarettes, with withdrawal - AMA Did Patient Leave Against Medical Advice: No CIWA Score - CIWA Score Nausea/Vomitin-No Nausea/No Vomiting Muscle Tremors: 1-None Visible, but [place] Anxiety: 1-Mildly Anxious Agitation: 1-Slight > Activity Paroxysmal Sweats: No Perspiration Orientation: 0-Oriented Tacttile Disturbances: 0-None Auditory Disturbances: 0-None Visual Disturbances: 0-None Headache: 0-None Present CIWA-Ar Total Score: 3
== END 2019-02-12 08:16 | disposition home or self-care (01) | DRG 897 ==
LOC: YASAS 08:22 → Y3N 12:06
PROVIDERS: ADMIT Surgery; ATTEND Surgery
PROC: HZ2ZZZZ Detoxification Services for Substance Abuse Treatment (ICD-10-PCS; principal; 2019-02-09)
DX: F10.230 Alcohol dependence with withdrawal, uncomplicated (principal); F15.20 Other stimulant dependence, uncomplicated; J45.22 Mild intermittent asthma with status asthmaticus; F12.10 Cannabis abuse, uncomplicated; F17.213 Nicotine dependence, cigarettes, with withdrawal; F25.9 Schizoaffective disorder, unspecified; F19.24 Other psychoactive substance dependence with psychoactive substance-induced mood disorder; I10 Essential (primary) hypertension; K21.9 Gastro-esophageal reflux disease without esophagitis; Z91.013 Allergy to seafood; Z91.048 Other nonmedicinal substance allergy status; Z91.5 Personal history of self-harm
CPT/HCPCS: 36415; 80053; 85027; 86593

== ENCOUNTER 2019-02-13 08:03 | Inpatient (IN) | payer OTHER ==
--- NOTE | 2019-02-13 08:55 | HP ---
COWS - Scale Resting Pulse: 0= OR 80 or Below CIWA Score Nausea/Vomitin-Mild Nausea/No Vomiting Muscle Tremors: None Anxiety: 0-No Anxiety, at Ease Agitation: 0-Normal Activity Paroxysmal Sweats: No Perspiration Orientation: 0-Oriented Tacttile Disturbances: 0-None Auditory Disturbances: 0-None Visual Disturbances: 0-None Headache: 0-None Present CIWA-Ar Total Score: 1 - Admission Criteria OASAS Guidelines: Admission for Medically Managed Detox: Requires at least one of the followin. CIWA greater than 12 2. Seizures within the past 24 hours 3. Delirium tremens within the past 24 hours 4. Hallucinations within the past 24 hours 5. Acute intervention needed for co occurring medical disorder 6. Acute intervention needed for co occurring psychiatric disorder 7. Severe withdrawal that cannot be handled at a lower level of care (continued vomiting, continued diarrhea, abnormal vital signs) requiring intravenous medication and/or fluids 8. Admission ROS S - HPI Chief Complaint: "I am finished detox and now I want to contnue to rehab." Allergies/Adverse Reactions: Allergies Allergy/AdvReac Type Severity Reaction Status Date / Time iodine Allergy Severe Hives Verified 02/13/19 08:21 SEAFOOD Allergy Severe Swelling Uncoded 02/13/19 08:21 History of Present Illness: 39 year old black male with history of alcohol and opioid use disorders. He states he used some heroin yesterday morning, 1-2 bags of heroin He usually drinks alcohol 5 pints of vodka daily, last drank on last week. He denies using alcohol use after leaving here. He is smokes ciggarettes about 10 ciggarettes per day. He denies using any other substances here. PMH: HTN in the past Psych: Schizophrenia and Mood disorder. Attempted suicide a long time ago. Meds: See nursing. All: NKDA, Iodine Patient is in detention but applying for housing. Patient has no legal issues pending. Patient has poor support systems: no family involvement or friends. Exam Limitations: No Limitations - Ebola screening Have you traveled outside of the country in the last 21 days: No Have you had contact with anyone from an Ebola affected area: No Have you been sick,other than usual withdrawal symptoms: No Do you have a fever: No - Review of Systems Constitutional: No Symptoms Reported EENT: reports: No Symptoms Reported Respiratory: reports: No Symptoms reported Cardiac: reports: No Symptoms Reported GI: reports: Blood Streaked Bowels (had some streaks of blood in stools last night bowel movement but none this morning on bowel movement), Nausea : reports: No Symptoms Reported Musculoskeletal: reports: No Symptoms Reported Integumentary: reports: No Symptoms Reported Neuro: reports: No Symptoms reported Endocrine: reports: No Symptoms Reported Hematology: reports: No Symptoms Reported Psychiatric: reports: Agitated, Anxious Other Systems: Reviewed and Negative Patient History - Patient Medical History Hx Anemia: No Hx Asthma: No Hx Chronic Obstructive Pulmonary Disease (COPD): No Hx Cancer: No Hx Cardiac Disorders: No Hx Congestive Heart Failure: No Hx Hypertension: No Hx Hypercholesterolemia: No Hx Pacemaker: No HX Cerebrovascular Accident: No Hx Seizures: Yes (thinks he had a seizure October 2018) Hx Dementia: No (feels that he forgets details ) Hx Diabetes: No Hx Gastrointestinal Disorders: No Hx Liver Disease: No Hx Genitourinary Disorders: No Hx Sexually Transmitted Disorders: No Hx Renal Disease (ESRD): No Hx Thyroid Disease: No Hx Human Immunodeficiency Virus (HIV): No (NEGATIVE HX) Hx Hepatitis C: No Hx Depression: No Hx Suicide Attempt: Yes (long time ago) Hx Bipolar Disorder: No Hx Schizophrenia: Yes (prolixin im 12/15/18; hospitalized about 15 years ago) - Patient Surgical History Past Surgical History: Yes Hx Neurologic Surgery: No Hx Cataract Extraction: No Hx Cardiac Surgery: No Hx Lung Surgery: No Hx Breast Surgery: No Hx Breast Biopsy: No Hx Abdominal Surgery: No Hx Appendectomy: No Hx Cholecystectomy: No Hx Genitourinary Surgery: No Hx Section: No Hx Orthopedic Surgery: No Other Surgical History: stitches on forehead due to trauma in 2010 Anesthesia Reaction: No - PPD History Previous Implant?: Yes Documented Results: Negative w/proof Implanted On Prior R Admission?: No Date: 05/07/18 Results: 0 mm PPD to be Administered?: No - Smoking Cessation Smoking history: Current every day smoker Have you smoked in the past 12 months: Yes Aproximately how many cigarettes per day: 10 Hx Chewing Tobacco Use: No Initiated information on smoking cessation: Yes 'Breaking Loose' booklet given: 02/13/19 - Substances abused Alcohol Substance route: Oral Frequency: Daily Amount used: 5 pints of vodka Age of first use: 12 Date of last use: 02/09/19 Methamphetamine Substance route: Oral Frequency: Daily Amount used: 3 pills Age of first use: 25 Date of last use: 10/09/18 Marijuana/Hashish Frequency: No use in 30 days Amount used: 1 ounce Age of first use: 12 Date of last use: 12/14/18 Heroin Substance route: Injection Frequency: 1-3 times last 30 days Amount used: 4 BAGS Age of first use: 39 Date of last use: 02/12/19 Admission Physical Exam [facility] - Vital Signs Vital Signs: Vital Signs - 24 hr 02/13/19 08:18 Temperature 97.4 F L - Physical General Appearance: Yes: No Apparent Distress HEENTM: Yes: EOMI, Hearing grossly Normal, Normal ENT Inspection, ALEXANDER, Pharynx Normal Respiratory: Yes: Chest Non-Tender, Normal Breath Sounds, Decreased Breath Sounds, No Respiratory Distress, No Accessory Muscle Use Neck: Yes: No masses,lesions,Nodules, Supple, Trachea in good position Breast: Yes: Within Normal Limits Cardiology: Yes: Regular Rhythm, Regular Rate, S1, S2 Abdominal: Yes: Normal Bowel Sounds, Non Tender, Flat, Soft Genitourinary: Yes: Within Normal Limits Back: Yes: Normal Inspection Musculoskeletal: Yes: full range of Motion, Gait Steady Extremities: Yes: Within Normal Limits, Normal Capillary Refill, Normal Inspection, Normal Range of Motion, Non-Tender 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: Yes: publications designer II-XII NML intact, Fully Oriented, Alert, Motor Strength 5/5 Integumentary: Yes: Normal Color, Warm Lymphatic: Yes: Within Normal Limits - Diagnostic (1) Alcohol dependence Current Visit: Yes Status: Acute (2) Amphetamine dependence Current Visit: Yes Status: Acute (3) Nicotine dependence Current Visit: Yes Status: Acute Qualifiers: Nicotine product type: cigarettes Substance use status: in withdrawal Qualified Code(s): F17.213 - Nicotine dependence, cigarettes, with withdrawal (4) Cannabis abuse Current Visit: Yes Status: Chronic (5) HTN (hypertension) Current Visit: Yes Status: Chronic Qualifiers: Hypertension type: essential hypertension Qualified Code(s): I10 - Essential (primary) hypertension (6) History of seizure Current Visit: Yes Status: Chronic Cleared for Admission [facility] - Detox or Rehab [facility] Level of Care: Medically Supervised Claeared for Rehab Admission: Yes Screened but not Admitted - Documentation of Visit Screened but not Admitted: No Left Prior to Completion of Assessment: No Insurance Authorization Denied: No Patient Does Not Meet Criteria for Admission: No Alternative Treatment/Jail Info Provided: No Breathalyzer - Breathalyzer Breathalyzer: 0 Vital Signs - Vital Signs Vital signs refused: No Temperature: 97.4 F Temperature source: Oral Pulse Rate: 61 Respiratory Rate: 18 Blood Pressure: 125/78 BP Location: Left Arm Blood Pressure position: Sitting - Height Height: 5 ft 10 in - Weight Weight: 207 lb Weight measurement method: Standing scale - BMI Body Mass Index (BMI): 29.7 - Bowel Function Bowel Movement: Yes Urine Drug Screen - Test Device Lot number: [id number] Expiration date: 10/13/20 - Control Is test valid?: Yes - Results Drug screen NEGATIVE: No Urine drug screen results: BZO-Benzodiazepines Inpatient Rehab Admission - Rehab Decision to Admit Inpatient rehab admission?: Yes - Initial Determination Are CD services needed?: Yes Free of communicable disease: Yes Not in need of hospitalization: Yes - Rehab Admission Criteria Previous failed treatment: Yes Poor recovery environment: Yes Comorbidities: Yes Lacks judgement: Yes Patient is meeting Inpatient Rehab admission criteria:: Yes
[2019-02-13 09:06] VITALS: BMI 29.7
[2019-02-13] MEDS ORDERED: guaiFENesin 200 MG/10 ML 10 ML UNIT-DOSE CUPS PO PRN (09:06)
[2019-02-13] MEDS ORDERED: MAGNESIUM HYDROX 2400MG/30ML ORAL SUSPENSION 30 ML CUP PO PRN (09:06)
[2019-02-13] MEDS ORDERED: MAGNESIUM CITRATE 300 ML BOTTLE PO PRN (09:06)
[2019-02-13] MEDS ORDERED: IBUPROFEN 400 MG TABLET (FP) PO PRN (09:06)
[2019-02-13] MEDS ORDERED: LOPERAMIDE HCL 2 MG CAPSULE PO PRN (09:06)
[2019-02-13] MEDS ORDERED: MAG HYDROX/AL HYDROX/SIMETH 30 ML UNIT-DOSE CUP PO PRN (09:06)
[2019-02-13] MEDS ORDERED: P-EPHED 60MG/TRIPROLIDI 2.5MG TABLET PO PRN (09:06)
[2019-02-13] MEDS ORDERED: MENTHOL/PHENOL 1 EACH UD MM PRN (09:06)
[2019-02-13] MEDS ORDERED: ACETAMINOPHEN 325 MG TABLET (FP) PO PRN (09:06)
[2019-02-13] MEDS ORDERED: PRENATAL VITAMINS W/ FOLIC ACID TABLET (FP) PO SCH (10:00)
[2019-02-13] MEDS ORDERED: NICOTINE 14 MG/24 HOURS TOPICAL PATCH TD SCH (10:00)
[2019-02-13 10:49] VITALS: BP 125/72; PULSE 64; TEMP 98
[2019-02-13] MEDS ORDERED: MELATONIN 5 MG TABLETS PO PRN (22:00)
[2019-02-13] MEDS ORDERED: THIAMINE HCL 100 MG TABLET (FP) PO SCH (22:00)
== END 2019-02-13 19:05 | disposition left against medical advice (07) | DRG 894 ==
LOC: YASAS 08:03 → Y5N 09:18
PROVIDERS: ADMIT Neuromusculoskeletal Medicine & OMM; ATTEND Neuromusculoskeletal Medicine & OMM
PROC: HZ42ZZZ Group Counseling for Substance Abuse Treatment, Cognitive-Behavioral (ICD-10-PCS; principal; 2019-02-13)
DX: F10.20 Alcohol dependence, uncomplicated (principal); F15.20 Other stimulant dependence, uncomplicated; J45.22 Mild intermittent asthma with status asthmaticus; F12.10 Cannabis abuse, uncomplicated; F17.213 Nicotine dependence, cigarettes, with withdrawal; I10 Essential (primary) hypertension; K21.9 Gastro-esophageal reflux disease without esophagitis; Z91.013 Allergy to seafood; Z91.018 Allergy to other foods; Z91.5 Personal history of self-harm

== ENCOUNTER 2019-05-06 09:30 | Inpatient (IN) | payer OTHER ==
[2019-05-06 10:06] VITALS: BMI 30.4
--- NOTE | 2019-05-06 10:46 | HP ---
CIWA Score Nausea/Vomitin Muscle Tremors: 3 Anxiety: 4-Mod. Anxious/Guarded Agitation: 3 Paroxysmal Sweats: No Perspiration Orientation: 3-Disoriented Date>2 days Tacttile Disturbances: 0-None Auditory Disturbances: 1-Very Mild Visual Disturbances: 1-Very Mild Sensitivity Headache: 1-Very Mild CIWA-Ar Total Score: 18 - Admission Criteria OASAS Guidelines: Admission for Medically Managed Detox: Requires at least one of the followin. CIWA greater than 12 2. Seizures within the past 24 hours 3. Delirium tremens within the past 24 hours 4. Hallucinations within the past 24 hours 5. Acute intervention needed for co occurring medical disorder 6. Acute intervention needed for co occurring psychiatric disorder 7. Severe withdrawal that cannot be handled at a lower level of care (continued vomiting, continued diarrhea, abnormal vital signs) requiring intravenous medication and/or fluids 8. Patient presents the following: CIWA greater than 12 Admission Criteria Met: Admission criteria met Admitting History and Physical - Admission History Source: Patient, Medical Record - Past Medical History Psych: Yes: Addictions, Schizophrenia - Smoking History Smoking history: Current every day smoker Have you smoked in the past 12 months: Yes Aproximately how many cigarettes per day: 10 - Alcohol/Substance Use Hx Alcohol Use: Yes - Social History Usual Living Arrangement: Yes: Alone ADL: Support Services Admission ROS S - HPI Chief Complaint: I want to stop drinking - I want to try again - it's out of control, I want to stop, so my thoughts would be clearer Allergies/Adverse Reactions: Allergies Allergy/AdvReac Type Severity Reaction Status Date / Time iodine Allergy Severe Hives Verified 05/06/19 09:54 SEAFOOD Allergy Severe Swelling Uncoded 02/13/19 08:21 History of Present Illness: 39 yo gentleman here for detox from alcohol - this is one of multiple admissions for treatment - no recent ED visits, on SSI, history of seizures - last one about three months ago per patient. He is homeless, lives in a detention , was last incarcerated about 2 years ago - not sure why - he thinks burglary. Patient drinks first thing in the morning. - Ebola screening Have you traveled outside of the country in the last 21 days: No (N) Have you had contact with anyone from an Ebola affected area: No Do you have a fever: No - Review of Systems Constitutional: Loss of Appetite, Changes in sleep, Weakness EENT: reports: No Symptoms Reported Respiratory: reports: No Symptoms reported Cardiac: reports: No Symptoms Reported GI: reports: Nausea, Poor Appetite, Abdominal cramping : reports: Frequency Integumentary: reports: Dryness Neuro: reports: Headache, Tremors Endocrine: reports: No Symptoms Reported Hematology: reports: No Symptoms Reported Psychiatric: reports: Judgement Intact, Mood/Affect Appropiate, Orientated x3, Anxious Other Systems: Reviewed and Negative Patient History - Patient Medical History Hx Anemia: No Hx Asthma: No Hx Chronic Obstructive Pulmonary Disease (COPD): No Hx Cancer: No Hx Cardiac Disorders: No Hx Congestive Heart Failure: No Hx Hypertension: No Hx Hypercholesterolemia: No Hx Pacemaker: No HX Cerebrovascular Accident: No Hx Seizures: Yes (last february 2019) Hx Dementia: No (feels that he forgets details ) Hx Diabetes: No Hx Gastrointestinal Disorders: No Hx Liver Disease: No Hx Genitourinary Disorders: No Hx Sexually Transmitted Disorders: No Hx Renal Disease (ESRD): No Hx Thyroid Disease: No Hx Human Immunodeficiency Virus (HIV): No (NEGATIVE HX) Hx Hepatitis C: No Hx Depression: Yes Hx Suicide Attempt: Yes (many years ago when young) Hx Bipolar Disorder: No Hx Schizophrenia: Yes (history of meds, hospitalized in past) - Patient Surgical History Past Surgical History: Yes Hx Neurologic Surgery: No Hx Cataract Extraction: No Hx Cardiac Surgery: No Hx Lung Surgery: No Hx Breast Surgery: No Hx Breast Biopsy: No Hx Abdominal Surgery: No Hx Appendectomy: No Hx Cholecystectomy: No Hx Genitourinary Surgery: No Hx Section: No Hx Orthopedic Surgery: No Other Surgical History: stitches on forehead due to trauma in 2010 Anesthesia Reaction: No - PPD History Date: 05/07/18 Results: 0 mm - Reproductive History Patient is a Female of Child Bearing Age (11 -55 yrs old): No - Smoking Cessation Smoking history: Current every day smoker Have you smoked in the past 12 months: Yes Aproximately how many cigarettes per day: 10 Hx Chewing Tobacco Use: No Initiated information on smoking cessation: Yes 'Breaking Loose' booklet given: 05/06/19 (give on floor) - Substance & Tx. History Hx Alcohol Use: Yes Hx Substance Use: Yes (none for several months) Substance Use Type: Alcohol, Heroin, Marijuana Hx Substance Use Treatment: Yes (detox, rehab) - Substances abused Alcohol Substance route: Oral Frequency: Daily Amount used: 4 pints of vodka Age of first use: 12 Date of last use: 05/06/19 Methamphetamine Substance route: Oral Frequency: Daily Amount used: 3 pills Age of first use: 25 Date of last use: 10/09/18 Marijuana/Hashish Frequency: No use in 30 days Amount used: 1 ounce Age of first use: 12 Date of last use: 12/14/18 Heroin Substance route: Injection Frequency: 1-3 times last 30 days Amount used: 4 BAGS Age of first use: 39 Date of last use: 02/12/19 Admission Physical Exam [facility] - Vital Signs Vital Signs: Vital Signs - 24 hr 05/06/19 09:57 Pulse Rate 75 Respiratory 18 Rate Blood Pressure 107/72 - Physical General Appearance: Yes: Nourished, Appropriately Dressed, Moderate Distress, Tremorous, Anxious HEENTM: Yes: EOMI, Hearing grossly Normal, Normocephalic, Normal Voice, Pharynx Normal Respiratory: Yes: Normal Breath Sounds, No Respiratory Distress Neck: Yes: Within Normal Limits Breast: Yes: Breast Exam Deferred Cardiology: Yes: Regular Rhythm, Regular Rate Abdominal: Yes: Soft Genitourinary: Yes: Frequency Back: Yes: Normal Inspection Musculoskeletal: Yes: full range of Motion, Gait Steady Extremities: Yes: Normal Inspection, Normal Range of Motion, Non-Tender, Tremors 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: Yes: Fully Oriented, Alert, Normal Mood/Affect, Normal Response Integumentary: Yes: Normal Color, Dry, Warm, Other (healed stitches mid forehad) Lymphatic: Yes: Within Normal Limits - Diagnostic (1) Alcohol dependence with uncomplicated withdrawal Current Visit: Yes Status: Acute (2) Nicotine dependence Current Visit: Yes Status: Acute Qualifiers: Nicotine product type: cigarettes Substance use status: in withdrawal Qualified Code(s): F17.213 - Nicotine dependence, cigarettes, with withdrawal (3) GERD (gastroesophageal reflux disease) Current Visit: Yes Status: Chronic Qualifiers: Esophagitis presence: esophagitis presence not specified Qualified Code(s) : K21.9 - Gastro-esophageal reflux disease without esophagitis (4) History of seizure Current Visit: Yes Status: Chronic (5) History of traumatic head injury Current Visit: Yes Status: Resolved Cleared for Admission [facility] - Detox or Rehab [facility] Level of Care: Medically Managed Detox Regimen/Protocol: Librium Breathalyzer - Breathalyzer Breathalyzer: 0 Urine Drug Screen - Test Device Lot number: [id number] Expiration date: 12/14/20 - Control Is test valid?: Yes - Results Drug screen NEGATIVE: No Urine drug screen results: BZO-Benzodiazepines Inpatient Rehab Admission - Rehab Decision to Admit Inpatient rehab admission?: No
[2019-05-06] MEDS ORDERED: NICOTINE POLACRILEX 4 MG GUM BUC PRN (10:55)
[2019-05-06] MEDS ORDERED: hydrOXYzine PAMOATE 25 MG CAPSULE (FP) PO PRN (10:55)
[2019-05-06] MEDS ORDERED: MELATONIN 5 MG TABLETS PO PRN (10:55)
[2019-05-06] MEDS ORDERED: IBUPROFEN 400 MG TABLET (FP) PO PRN (10:55)
[2019-05-06] MEDS ORDERED: MENTHOL/PHENOL 1 EACH UD MM PRN (10:55)
[2019-05-06] MEDS ORDERED: MAGNESIUM HYDROX 2400MG/30ML ORAL SUSPENSION 30 ML CUP PO PRN (10:55)
[2019-05-06] MEDS ORDERED: MAG HYDROX/AL HYDROX/SIMETH 30 ML UNIT-DOSE CUP PO PRN (10:55)
[2019-05-06] MEDS ORDERED: ACETAMINOPHEN 325 MG TABLET (FP) PO PRN ×2 (10:55)
[2019-05-06] MEDS ORDERED: METHOCARBAMOL 500 MG TABLET PO PRN (10:55)
[2019-05-06] MEDS ORDERED: MAGNESIUM CITRATE 300 ML BOTTLE PO PRN (10:55)
[2019-05-06] MEDS ORDERED: BISMUTH SUBSALICYLATE 524 MG/30 ML UD PO PRN (10:55)
[2019-05-06] MEDS ORDERED: chlordiazePOXIDE HCL 25 MG CAPSULE PO PRN (10:55)
[2019-05-06] MEDS ORDERED: chlordiazePOXIDE HCL 25 MG CAPSULE PO ONE (11:30)
[2019-05-06] MEDS: NICOTINE 21 MG/24 HOURS TOPICAL PATCH TD SCH (12:11)
[2019-05-06] MEDS: chlordiazePOXIDE HCL 25 MG CAPSULE PO SCH ×2 (17:21→23:31)
[2019-05-06] MEDS ORDERED: THIAMINE HCL 100 MG TABLET (FP) PO SCH (22:00)
[2019-05-07] MEDS: chlordiazePOXIDE HCL 25 MG CAPSULE PO SCH ×3 (06:31→17:38)
--- NOTE | 2019-05-07 09:44 | CONSULT ---
[facility] Psychiatric Consult - Data Date of interview: 05/07/19 Admission source: [facility] Identifying data: Patient is a 39 year old single male, without children, unemployed, resides in a [facility], and is supported by SSI/ SSD. This is one of multiple admissions for patient. Patient admitted to for alcohol dependence. Substance Abuse History: - Smoking Cessation. Smoking history: Current every day smoker. Have you smoked in the past 12 months: Yes. Aproximately how many cigarettes per day: 10. Hx Chewing Tobacco Use: No. Initiated information on smoking cessation: Yes. 'Breaking Loose' booklet given: 05/06/19 (give on floor ). - Substance & Tx. History. Hx Alcohol Use: Yes. Hx Substance Use: Yes ( none for several months). Substance Use Type: Alcohol, Heroin, Marijuana. Hx Substance Use Treatment: Yes (detox, rehab). - Substances abused. Alcohol. Substance route: Oral. Frequency: Daily. Amount used: 4 pints of vodka. Age of first use: 12. Date of last use: 05/06/19. Methamphetamine. Substance route: Oral. Frequency: Daily. Amount used: 3 pills. Age of first use: 25. Date of last use: 10/09/18. Marijuana/Hashish. Frequency: No use in 30 days. Amount used: 1 ounce. Age of first use: 12. Date of last use: . Heroin. Substance route: Injection. Frequency: 1-3 times last 30 days. Amount used: 4 BAGS. Age of first use: 39. Date of last use: 02/12/19 Medical History: Seizures Psychiatric History: Mr. Bill first psychiatric contact was in 1998 due to mood instability. Patient having difficulty providing a cohesive psychiatric history. As per Dr. Hamilton note on 02/10/19 patient's first pychiatric contact was due to auditory hallucinations and persecutory delusions. Patient has prior hospitalizations at [facility], [facility], [facility], and [facility]. Patient unsure of dignosis but most likely has a diagnosis of schizophrenia vs schizoaffective disorder. States that he receives outpatient psychiatric care at [facility] and receives prolixen decanoate 25mg monthly (as per patient he received last injection on 04/27/19). At present patient denies auditory/visual hallucinations , suicidal/homicidal ideation. Physical/Sexual Abuse/Trauma History: denies. Mental Status Exam - Mental Status Exam Alert and Oriented to: Time, Place, Person Cognitive Function: Good Patient Appearance: Well Groomed Mood: Euthymic Affect: Appropriate Patient Behavior: Cooperative Speech Pattern: Clear Voice Loudness: Moderately Soft/Quiet Thought Process: Goal Oriented Thought Disorder: Not Present Hallucinations: Denies Suicidal Ideation: Denies Homicidal Ideation: Denies Insight/Judgement: Poor Sleep: Fair Appetite: Fair Muscle strength/Tone: Normal Gait/Station: Normal Psychiatric Findings - Problem List (Bliss 1, 2,3) (1) Alcohol dependence with uncomplicated withdrawal Current Visit: Yes Status: Acute (2) Nicotine dependence Current Visit: Yes Status: Acute Qualifiers: Nicotine product type: cigarettes Substance use status: in withdrawal Qualified Code(s): F17.213 - Nicotine dependence, cigarettes, with withdrawal (3) Schizoaffective disorder Current Visit: Yes Status: Chronic Qualifiers: Schizoaffective disorder type: unspecified Qualified Code(s): F25.9 - Schizoaffective disorder, unspecified Comment: As per history. On prolixin decanoate 25 mg IM (dispensed on 02/04/19 according to patient). - Initial Treatment Plan Initial Treatment Plan: Psychoeducation provided. Detoxification in progress. Observation. States that he received Prolixen Decanoate 25mg on 04/27/19.
[2019-05-07] MEDS ORDERED: PRENATAL VITAMINS W/ FOLIC ACID TABLET (FP) PO SCH (10:00)
[2019-05-07] MEDS: NICOTINE 21 MG/24 HOURS TOPICAL PATCH TD SCH (11:17)
--- NOTE | 2019-05-07 11:50 | PN ---
S CIWA - CIWA Score Nausea/Vomitin-No Nausea/No Vomiting Muscle Tremors: None Anxiety: 3 Agitation: 0-Normal Activity Paroxysmal Sweats: 3 Orientation: 0-Oriented Tacttile Disturbances: 0-None Auditory Disturbances: 0-None Visual Disturbances: 0-None Headache: 2-Mild CIWA-Ar Total Score: 8 B[facility] Progress Note (SOAP) Subjective: c/o headache, sweats, and anxiety. Objective: 05/07/19 11:49 Vital Signs 05/07/19 05/07/19 06:04 10:05 Temperature 97.5 F L 98.2 F Pulse Rate 67 77 Respiratory 18 16 Rate Blood Pressure 100/39 L 119/81 Assessment: 05/07/19 11:49 AOX3, in no acute respiratory distress. Full ROM, ambulating in the unit. Withdrawal symptoms Plan: continue detox.
[2019-05-07 17:43] VITALS: BP 119/65; PULSE 78; TEMP 98.4
--- NOTE | 2019-05-07 18:17 | PN ---
[facility] Progress Note Note: patient would like to be discharged,all attempts to convince patient to stay with no avail,seen by counselor, high risk of relapsing explained,patient understood,no suicidal,no homicidal, advise follow up with psychiatrist at [facility] , to call 911 if not feeling well,patient signed release ama
--- NOTE | 2019-05-07 18:32 | DS ---
[facility] Detox Discharge Summary Admission Date: 05/06/19 Discharge Date: 05/07/19 - History Present History: Alcohol Dependence, Cannabis Dependence Additional Comments: patient signed release ama Pertinent Past History: amphetamine abused schizoaffective disorder - Physical Exam Results Vital Signs: Vital Signs Temperature 98.4 F 05/07/19 17:43 Pulse Rate 78 05/07/19 17:43 Respiratory Rate 18 05/07/19 17:43 Blood Pressure 119/65 05/07/19 17:43 O2 Sat by Pulse Oximetry (%) Pertinent Admission Physical Exam Findings: withdrawal signs and symptom Vital Signs Temperature 98.4 F 05/07/19 17:43 Pulse Rate 78 05/07/19 17:43 Respiratory Rate 18 05/07/19 17:43 Blood Pressure 119/65 05/07/19 17:43 O2 Sat by Pulse Oximetry (%) - Medication Discharge Medications: Ambulatory Orders Fluphenazine HCl Injection [Prolixin Injection -] 2.5 ml IM MONTHLY 12/17/18 - Diagnosis (1) Alcohol dependence with uncomplicated withdrawal Current Visit: Yes Status: Acute (2) Nicotine dependence Current Visit: Yes Status: Acute Qualifiers: Nicotine product type: cigarettes Substance use status: in withdrawal Qualified Code(s): F17.213 - Nicotine dependence, cigarettes, with withdrawal (3) History of seizure Current Visit: Yes Status: Chronic (4) Schizoaffective disorder Current Visit: Yes Status: Chronic Qualifiers: Schizoaffective disorder type: unspecified Qualified Code(s): F25.9 - Schizoaffective disorder, unspecified - AMA Did Patient Leave Against Medical Advice: Yes
[2019-05-08] MEDS ORDERED: chlordiazePOXIDE HCL 25 MG CAPSULE PO SCH (05:00)
[2019-05-09] MEDS ORDERED: chlordiazePOXIDE HCL 10 MG CAPSULE PO PRN
[2019-05-09] MEDS ORDERED: chlordiazePOXIDE HCL 10 MG CAPSULE PO SCH (05:00)
[2019-05-10] MEDS ORDERED: chlordiazePOXIDE HCL 10 MG CAPSULE PO SCH (05:00)
[2019-05-11] MEDS ORDERED: chlordiazePOXIDE HCL 10 MG CAPSULE PO ONE (05:00)
== END 2019-05-07 18:40 | disposition left against medical advice (07) | DRG 894 ==
LOC: YASAS 09:30 → Y6N 11:07
PROVIDERS: ADMIT Allergy & Immunology; ATTEND Allergy & Immunology
PROC: HZ2ZZZZ Detoxification Services for Substance Abuse Treatment (ICD-10-PCS; principal; 2019-05-06)
DX: F10.230 Alcohol dependence with withdrawal, uncomplicated (principal); F17.210 Nicotine dependence, cigarettes, uncomplicated; F25.9 Schizoaffective disorder, unspecified; K21.9 Gastro-esophageal reflux disease without esophagitis; Z91.013 Allergy to seafood; Z91.018 Allergy to other foods; Z86.69 Personal history of other diseases of the nervous system and sense organs; Z91.5 Personal history of self-harm

== ENCOUNTER 2019-05-12 19:39 | Inpatient (IN) | payer OTHER ==
[2019-05-12 20:34] VITALS: BMI 31.1
--- NOTE | 2019-05-12 21:01 | HP ---
"CIWA Score Nausea/Vomitin-No Nausea/No Vomiting Muscle Tremors: 4-Moderate,w/Arms Extend Anxiety: 3 Agitation: 4-Moderately Restless Paroxysmal Sweats: 3 Orientation: 0-Oriented Tacttile Disturbances: 0-None Auditory Disturbances: 0-None Visual Disturbances: 0-None Headache: 0-None Present CIWA-Ar Total Score: 14 - Admission Criteria OASAS Guidelines: Admission for Medically Managed Detox: Requires at least one of the followin. CIWA greater than 12 2. Seizures within the past 24 hours 3. Delirium tremens within the past 24 hours 4. Hallucinations within the past 24 hours 5. Acute intervention needed for co occurring medical disorder 6. Acute intervention needed for co occurring psychiatric disorder 7. Severe withdrawal that cannot be handled at a lower level of care (continued vomiting, continued diarrhea, abnormal vital signs) requiring intravenous medication and/or fluids 8. Patient presents the following: CIWA greater than 12 Admission Criteria Met: Admission criteria met Admitting History and Physical - Past Medical History Psych: Yes: Addictions, Schizophrenia - Smoking History Smoking history: Current every day smoker Have you smoked in the past 12 months: Yes Aproximately how many cigarettes per day: 10 - Alcohol/Substance Use Hx Alcohol Use: Yes - Social History ADL: Support Services Admission ROS [facility] Chief Complaint: States here for sobriety. Allergies/Adverse Reactions: Allergies Allergy/AdvReac Type Severity Reaction Status Date / Time fish derived Allergy Severe Swelling Verified 05/12/19 20:15 iodine Allergy Severe Hives Verified 05/12/19 20:15 shellfish derived Allergy Severe Swelling Verified 05/12/19 20:15 SEAFOOD Allergy Severe Swelling Uncoded 05/12/19 20:15 History of Present Illness: 39 yo requesting detox or rehab for alcohol use disorder. Patient was here and left AMA on 05/07/19. and returns today seeking treatment. States left last time because he wanted a cigarette. STEPHENIE: 0.0 UTox: + BZO Hx seizures r/t alcohol - last 4 years ago. Denies blackouts or overdoses. Alcohol use since age 12. Currently drinking every day 4 pints liquor. Last drink this am. States has been drinking every day since signed out on 05/07. Nicotine use since age 13. Smokes 1/2 PPD. PMHx: Denies. MHHx: Mood disorder - on Prolixin. States received at [facility] on 05/10. Denies thoughts of harming self or others. SHx: Homeless care home. Unemployed. Denies legal issues. Search Terms: Jericho Bill, 1980 Search Date: 05/12/2019 08:57:03 PM The Drug Utilization Report below displays all of the controlled substance prescriptions, if any, that your patient has filled in the last twelve months. The information displayed on this report is compiled from pharmacy submissions to the Department, and accurately reflects the information as submitted by the pharmacies. This report was requested by: Diamond Leslie | Reference #: [id number] There are no results for the search terms that you entered. Exam Limitations: No Limitations - Ebola screening Have you traveled outside of the country in the last 21 days: No (N) Have you had contact with anyone from an Ebola affected area: No Have you been sick,other than usual withdrawal symptoms: No Do you have a fever: No - Review of Systems Constitutional: Chills, Weight Stable EENT: reports: Blurred Vision Respiratory: reports: SOB with Exertion (Walking, stair climbing) Cardiac: reports: No Symptoms Reported GI: reports: Nausea : reports: No Symptoms Reported Musculoskeletal: reports: Joint Pain ((L) ankle pain x 1 week.) Integumentary: reports: No Symptoms Reported Neuro: reports: Tremors Endocrine: reports: No Symptoms Reported Hematology: reports: No Symptoms Reported Psychiatric: reports: Orientated x3, Agitated, Anxious Patient History - Patient Medical History Hx Anemia: No Hx Asthma: Yes Hx Chronic Obstructive Pulmonary Disease (COPD): No Hx Cancer: No Hx Cardiac Disorders: No Hx Congestive Heart Failure: No Hx Hypertension: Yes Hx Hypercholesterolemia: No Hx Pacemaker: No HX Cerebrovascular Accident: No Hx Seizures: Yes (01/2019 r/t Alcohol) Hx Dementia: No (feels that he forgets details ) Hx Diabetes: No Hx Gastrointestinal Disorders: No Hx Liver Disease: No Hx Genitourinary Disorders: No Hx Sexually Transmitted Disorders: No Hx Renal Disease (ESRD): No Hx Thyroid Disease: No Hx Human Immunodeficiency Virus (HIV): No (NEGATIVE HX) Hx Hepatitis C: No Hx Depression: No Hx Suicide Attempt: No Hx Bipolar Disorder: No Hx Schizophrenia: Yes - Patient Surgical History Past Surgical History: Yes Hx Neurologic Surgery: No Hx Cataract Extraction: No Hx Cardiac Surgery: No Hx Lung Surgery: No Hx Breast Surgery: No Hx Breast Biopsy: No Hx Abdominal Surgery: No Hx Appendectomy: No Hx Cholecystectomy: No Hx Genitourinary Surgery: No Hx Section: No Hx Orthopedic Surgery: No Other Surgical History: stitches on forehead due to trauma in 2010 Anesthesia Reaction: No - PPD History Previous Implant?: Yes Documented Results: Negative w/proof Results: 0 mm PPD to be Administered?: Yes - Smoking Cessation Smoking history: Current every day smoker Have you smoked in the past 12 months: Yes Aproximately how many cigarettes per day: 10 Hx Chewing Tobacco Use: No Initiated information on smoking cessation: Yes 'Breaking Loose' booklet given: 05/12/19 - Substance & Tx. History Hx Alcohol Use: Yes Hx Substance Use: Yes Substance Use Type: Alcohol, Heroin, Marijuana Hx Substance Use Treatment: Yes (detox, rehab) - Substances abused Alcohol Substance route: Oral Frequency: Daily Amount used: 4 pints of vodka Age of first use: 12 Date of last use: 05/12/19 Methamphetamine Substance route: Oral Frequency: Daily Amount used: 3 pills Age of first use: 25 Date of last use: 10/09/18 Marijuana/Hashish Frequency: No use in 30 days Amount used: 1 ounce Age of first use: 12 Date of last use: 12/14/18 Heroin Substance route: Injection Frequency: 1-3 times last 30 days Amount used: 4 BAGS Age of first use: 39 Date of last use: 05/11/19 Admission Physical Exam [facility] - Vital Signs Vital Signs: Vital Signs - 24 hr 05/12/19 20:17 Temperature 97.9 F Pulse Rate 83 Respiratory 16 Rate Blood Pressure 120/72 - Physical General Appearance: Yes: Nourished, Mild Distress, Obese, Tremorous, Sweating ( Increased facial moisture), Anxious HEENTM: Yes: EOMI, Hearing grossly Normal, Normocephalic, Normal Voice, ALEXANDER, Pharynx Normal, Nasal Congestion, Orbits (Whitish mucous discharge (R) eye.) Respiratory: Yes: Lungs Clear (Pulse Ox = 97%), Normal Breath Sounds, No Respiratory Distress, Other (Noisy, non-productive cough.) Neck: Yes: No masses,lesions,Nodules, Supple Breast: Yes: Breast Exam Deferred Cardiology: Yes: Regular Rhythm, Regular Rate, S1, S2 Abdominal: Yes: Non Tender, Soft, Increased Bowel Sounds Genitourinary: Yes: Within Normal Limits Back: Yes: Normal Inspection Musculoskeletal: Yes: full range of Motion, Gait Steady Extremities: Yes: Normal Capillary Refill (Peripheral pulses +; No edema), Tremors (Gross tremors) 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: 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 NML intact, Fully Oriented, Alert, Motor Strength 5/5, Other (Slow to respond to questions, sometimes; but responds appropriately) Integumentary: Yes: Normal Color, Warm, Moist (Increased facial moisture), Other (Scratch gilbert (L) leg, above knee) Lymphatic: Yes: Within Normal Limits - Diagnostic (1) Cough Current Visit: Yes Status: Chronic (2) Alcohol dependence with uncomplicated withdrawal Current Visit: Yes Status: Acute (3) Nicotine dependence Current Visit: Yes Status: Acute Qualifiers: Nicotine product type: cigarettes Substance use status: in withdrawal Qualified Code(s): F17.213 - Nicotine dependence, cigarettes, with withdrawal (4) History of seizure Current Visit: Yes Status: Chronic Comment: None in 3-4 years (5) Obesity Current Visit: Yes Status: Chronic Cleared for Admission S - Detox or Rehab [facility] Level of Care: Medically Managed Detox Regimen/Protocol: Librium Claeared for Rehab Admission: No Breathalyzer - Breathalyzer Breathalyzer: 0 Urine Drug Screen - Test Device Lot number: [id number] Expiration date: 12/14/20 - Control Is test valid?: Yes - Results Drug screen NEGATIVE: No Urine drug screen results: BZO-Benzodiazepines Inpatient Rehab Admission - Rehab Decision to Admit Inpatient rehab admission?: No"
[2019-05-12] MEDS ORDERED: MENTHOL/PHENOL 1 EACH UD MM PRN (21:44)
[2019-05-12] MEDS ORDERED: METHOCARBAMOL 500 MG TABLET PO PRN (21:44)
[2019-05-12] MEDS ORDERED: ACETAMINOPHEN 325 MG TABLET (FP) PO PRN ×2 (21:44)
[2019-05-12] MEDS ORDERED: NICOTINE POLACRILEX 2 MG GUM BUC PRN (21:44)
[2019-05-12] MEDS ORDERED: MAGNESIUM CITRATE 300 ML BOTTLE PO PRN (21:44)
[2019-05-12] MEDS ORDERED: MAG HYDROX/AL HYDROX/SIMETH 30 ML UNIT-DOSE CUP PO PRN (21:44)
[2019-05-12] MEDS ORDERED: IBUPROFEN 400 MG TABLET (FP) PO PRN (21:44)
[2019-05-12] MEDS ORDERED: BISMUTH SUBSALICYLATE 524 MG/30 ML UD PO PRN (21:44)
[2019-05-12] MEDS ORDERED: MAGNESIUM HYDROX 2400MG/30ML ORAL SUSPENSION 30 ML CUP PO PRN (21:44)
[2019-05-12] MEDS ORDERED: MELATONIN 5 MG TABLETS PO PRN (21:44)
[2019-05-12] MEDS ORDERED: chlordiazePOXIDE HCL 25 MG CAPSULE PO ONE (22:49)
[2019-05-12] MEDS: P-EPHED 60MG/TRIPROLIDI 2.5MG TABLET PO SCH (23:23)
[2019-05-12] MEDS: guaiFENesin 200 MG/10 ML 10 ML UNIT-DOSE CUPS PO SCH (23:23)
[2019-05-12] MEDS: THIAMINE HCL 100 MG TABLET (FP) PO SCH (23:23)
[2019-05-13] MEDS: guaiFENesin 200 MG/10 ML 10 ML UNIT-DOSE CUPS PO SCH ×4 (03:53→23:11)
[2019-05-13] MEDS: chlordiazePOXIDE HCL 25 MG CAPSULE PO SCH ×3 (07:16→22:22)
[2019-05-13] MEDS: P-EPHED 60MG/TRIPROLIDI 2.5MG TABLET PO SCH ×2 (10:27→22:22)
[2019-05-13] MEDS: NICOTINE 14 MG/24 HOURS TOPICAL PATCH TD SCH (10:27)
[2019-05-13] MEDS: PRENATAL VITAMINS W/ FOLIC ACID TABLET (FP) PO SCH (10:27)
--- NOTE | 2019-05-13 11:14 | PN ---
S CIWA - CIWA Score Nausea/Vomitin-No Nausea/No Vomiting Muscle Tremors: 2 Anxiety: 3 Agitation: 1-Slight > Activity Paroxysmal Sweats: 3 Orientation: 0-Oriented Tacttile Disturbances: 1-Very Mild Itch/Numbness Auditory Disturbances: 0-None Visual Disturbances: 0-None Headache: 1-Very Mild CIWA-Ar Total Score: 11 [facility] Progress Note (SOAP) Subjective: c/o headache, anxiety, shakes, and sweats. Objective: 05/13/19 11:17 Vital Signs 05/13/19 05/13/19 05/13/19 03:30 06:45 09:20 Temperature 97.3 F L 96.7 F L Pulse Rate 78 75 Respiratory 18 18 18 Rate Blood Pressure 112/61 116/68 Assessment: 05/13/19 11:18 AOx3, in no acute respiratory distress. Full rom, ambulating in the unit. Withdrawal symptoms. Plan: continue detox.
[2019-05-13] MEDS: THIAMINE HCL 100 MG TABLET (FP) PO SCH (22:22)
[2019-05-13] MEDS ORDERED: chlordiazePOXIDE HCL 10 MG CAPSULE PO PRN (22:49)
[2019-05-14] MEDS: chlordiazePOXIDE 5 MG CAPSULE PO SCH ×3 (07:14→21:43)
[2019-05-14] MEDS: guaiFENesin 200 MG/10 ML 10 ML UNIT-DOSE CUPS PO SCH ×3 (07:40→15:00)
[2019-05-14] MEDS: PRENATAL VITAMINS W/ FOLIC ACID TABLET (FP) PO SCH (10:51)
[2019-05-14] MEDS: NICOTINE 14 MG/24 HOURS TOPICAL PATCH TD SCH (10:51)
[2019-05-14] MEDS: P-EPHED 60MG/TRIPROLIDI 2.5MG TABLET PO SCH ×2 (10:51→21:45)
--- NOTE | 2019-05-14 12:51 | PN ---
S CIWA - CIWA Score Nausea/Vomitin-No Nausea/No Vomiting Muscle Tremors: 2 Anxiety: 2 Agitation: 1-Slight > Activity Paroxysmal Sweats: 2 Orientation: 0-Oriented Tacttile Disturbances: 0-None Auditory Disturbances: 0-None Visual Disturbances: 0-None Headache: 0-None Present CIWA-Ar Total Score: 7 B[facility] Progress Note (SOAP) Subjective: 39 years old male admitted on 05/12/19 for alcohol withdrawal sx management treating with librium detox regimen ate breakfast in day room with peers attend meetings and groups patient determines to go through chemical recovery process Objective: 05/14/19 12:52 Vital Signs Temperature 97.7 F 05/14/19 09:07 Pulse Rate 81 05/14/19 09:07 Respiratory Rate 18 05/14/19 09:07 Blood Pressure 124/78 05/14/19 09:07 O2 Sat by Pulse Oximetry (%) 05/14/19 12:55 lab see 01/2019 report Assessment: 05/14/19 12:55 alcohol withdrawal Plan: librium regimen
[2019-05-14] MEDS: THIAMINE HCL 100 MG TABLET (FP) PO SCH (21:44)
[2019-05-15] MEDS ORDERED: chlordiazePOXIDE HCL 10 MG CAPSULE PO PRN (00:01)
[2019-05-15] MEDS: chlordiazePOXIDE HCL 10 MG CAPSULE PO SCH ×3 (05:40→22:19)
[2019-05-15] MEDS: PRENATAL VITAMINS W/ FOLIC ACID TABLET (FP) PO SCH (10:33)
[2019-05-15] MEDS: NICOTINE 14 MG/24 HOURS TOPICAL PATCH TD SCH (10:34)
--- NOTE | 2019-05-15 11:31 | PN ---
S CIWA - CIWA Score Nausea/Vomitin-No Nausea/No Vomiting Muscle Tremors: 2 Anxiety: 2 Agitation: 1-Slight > Activity Paroxysmal Sweats: No Perspiration Orientation: 0-Oriented Tacttile Disturbances: 0-None Auditory Disturbances: 0-None Visual Disturbances: 0-None Headache: 0-None Present CIWA-Ar Total Score: 5 BHS Progress Note (SOAP) Subjective: 39 years old male admitted on 05/12/19 for alcohol withdrawal sx management treating with librium detox regimen feeling better today slept through the night less tremor Objective: 05/15/19 11:30 Vital Signs Temperature 97.2 F L 05/15/19 09:08 Pulse Rate 73 05/15/19 09:08 Respiratory Rate 18 05/15/19 09:08 Blood Pressure 131/77 05/15/19 09:08 O2 Sat by Pulse Oximetry (%) lab see 01/2019 report Assessment: 05/15/19 11:30 alcohol withdrawal Plan: librium regimen
[2019-05-15] MEDS: P-EPHED 60MG/TRIPROLIDI 2.5MG TABLET PO SCH (12:42)
[2019-05-15] MEDS: THIAMINE HCL 100 MG TABLET (FP) PO SCH (22:19)
[2019-05-16] MEDS ORDERED: chlordiazePOXIDE HCL 10 MG CAPSULE PO ONE (05:00)
[2019-05-16 06:05] VITALS: BP 124/84; PULSE 86; TEMP 97.8
--- NOTE | 2019-05-16 14:07 | DS ---
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 assessed nor evaluated the patient before discharged - Physical Exam Results Vital Signs: Vital Signs Temperature 97.8 F 05/16/19 06:04 Pulse Rate 86 05/16/19 06:04 Respiratory Rate 18 05/16/19 06:04 Blood Pressure 124/84 05/16/19 06:04 O2 Sat by Pulse Oximetry (%) Pertinent Admission Physical Exam Findings: alcohol withdrawal - Treatment Hospital Course: Detox Protocol Followed, Detoxed Safely, Responded well, Discharged Condition Good, Rehab Referral Accepted Patient has Accepted a Rehab Referral to: [facility] - Medication Discharge Medications: Ambulatory Orders Fluphenazine HCl Injection [Prolixin Injection -] 2.5 ml IM MONTHLY 12/17/18 - Diagnosis (1) Alcohol dependence with uncomplicated withdrawal Status: Acute (2) Nicotine dependence Status: Acute Qualifiers: Nicotine product type: cigarettes Substance use status: in withdrawal Qualified Code(s): F17.213 - Nicotine dependence, cigarettes, with withdrawal (3) GERD (gastroesophageal reflux disease) Status: Chronic Qualifiers: Esophagitis presence: esophagitis presence not specified Qualified Code(s) : K21.9 - Gastro-esophageal reflux disease without esophagitis (4) Substance induced mood disorder Status: Suspected (5) Asthma Status: Chronic Qualifiers: Asthma severity: mild Asthma persistence: intermittent Asthma complication type: with status asthmaticus Qualified Code(s): J45.22 - Mild intermittent asthma with status asthmaticus - AMA Did Patient Leave Against Medical Advice: No
== END 2019-05-16 07:15 | disposition home or self-care (01) | DRG 897 ==
LOC: YASAS 19:39 → Y3N 22:13
PROVIDERS: ADMIT Allergy & Immunology; ATTEND Allergy & Immunology
PROC: HZ2ZZZZ Detoxification Services for Substance Abuse Treatment (ICD-10-PCS; principal; 2019-05-12)
DX: F10.230 Alcohol dependence with withdrawal, uncomplicated (principal); J45.22 Mild intermittent asthma with status asthmaticus; F17.213 Nicotine dependence, cigarettes, with withdrawal; F19.24 Other psychoactive substance dependence with psychoactive substance-induced mood disorder; I10 Essential (primary) hypertension; K21.9 Gastro-esophageal reflux disease without esophagitis; E66.9 Obesity, unspecified; Z68.31 Body mass index [BMI] 31.0-31.9, adult; R51 Headache; Z91.013 Allergy to seafood; Z91.048 Other nonmedicinal substance allergy status; Z86.69 Personal history of other diseases of the nervous system and sense organs; Z56.0 Unemployment, unspecified; Z59.0 Homelessness

== ENCOUNTER 2019-05-31 18:03 | Inpatient (IN) | payer OTHER ==
[2019-05-31 19:35] VITALS: BMI 31.8
--- NOTE | 2019-05-31 22:47 | HP ---
CIWA Score Nausea/Vomitin Muscle Tremors: 3 Anxiety: 4-Mod. Anxious/Guarded Agitation: 4-Moderately Restless Paroxysmal Sweats: 3 Orientation: 1-Uncertain about Date Tacttile Disturbances: 0-None Auditory Disturbances: 0-None Visual Disturbances: 0-None Headache: 2-Mild CIWA-Ar Total Score: 20 - Admission Criteria OASAS Guidelines: Admission for Medically Managed Detox: Requires at least one of the followin. CIWA greater than 12 2. Seizures within the past 24 hours 3. Delirium tremens within the past 24 hours 4. Hallucinations within the past 24 hours 5. Acute intervention needed for co occurring medical disorder 6. Acute intervention needed for co occurring psychiatric disorder 7. Severe withdrawal that cannot be handled at a lower level of care (continued vomiting, continued diarrhea, abnormal vital signs) requiring intravenous medication and/or fluids 8. Patient presents the following: CIWA greater than 12 Admission Criteria Met: Admission criteria met Admitting History and Physical - Past Medical History Psych: Yes: Addictions, Schizophrenia - Smoking History Smoking history: Current every day smoker Have you smoked in the past 12 months: Yes Aproximately how many cigarettes per day: 10 - Alcohol/Substance Use Hx Alcohol Use: Yes - Social History ADL: Support Services Admission ROS [facility] - HPI Chief Complaint: here for alcohol detox Allergies/Adverse Reactions: Allergies Allergy/AdvReac Type Severity Reaction Status Date / Time fish derived Allergy Severe Swelling Verified 05/31/19 19:09 iodine Allergy Severe Hives Verified 05/31/19 19:09 shellfish derived Allergy Severe Swelling Verified 05/31/19 19:09 SEAFOOD Allergy Severe Swelling Uncoded 05/31/19 19:09 History of Present Illness: HERE FOR ALCOHOL DETOX. CLIENT IS SELF REFERRED KNOWN TO PROGRAM., LAST HERE 2 WEEKS AGO. REPORTS IMMEDIATELY RELAPSING AFTER DC AND HAS BEEN DRINKING DAILY. SEEKING DETOX WITH HOPES OF GOING ON TO REHAB. 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 + HX/O BLACK OUTS AND SEIZURE R/T WITHDRAWAL. DENIES ANY SIGNIFICANT PERIOD OF CLEAN TIME EXCEPT WHEN INTXMENT THIS PAST YEAR. HOMELESS , UNEMPLOYED, DENIES LEGALS Exam Limitations: No Limitations - Ebola screening Have you traveled outside of the country in the last 21 days: No (N) Have you had contact with anyone from an Ebola affected area: No Do you have a fever: No - Review of Systems Constitutional: Chills, Night Sweats, Changes in sleep EENT: reports: Blurred Vision (GLASSES) Respiratory: reports: No Symptoms reported Cardiac: reports: No Symptoms Reported (SORE) GI: reports: Nausea, Poor Appetite, Poor Fluid Intake : reports: No Symptoms Reported Musculoskeletal: reports: No Symptoms Reported Integumentary: reports: Sweating Neuro: reports: Headache, Seizure (LAST EPISODE 3 MONTHS AGO), Tremors Endocrine: reports: No Symptoms Reported Hematology: reports: No Symptoms Reported Psychiatric: reports: Anxious Other Systems: Reviewed and Negative Patient History - Patient Medical History Hx Anemia: No Hx Asthma: Yes Hx Chronic Obstructive Pulmonary Disease (COPD): No Hx Cancer: No Hx Cardiac Disorders: No Hx Congestive Heart Failure: No Hx Hypertension: Yes Hx Hypercholesterolemia: No Hx Pacemaker: No HX Cerebrovascular Accident: No Hx Seizures: Yes Hx Dementia: No Hx Diabetes: No Hx Gastrointestinal Disorders: No Hx Liver Disease: No Hx Genitourinary Disorders: No Hx Sexually Transmitted Disorders: No Hx Renal Disease (ESRD): No Hx Thyroid Disease: No Hx Human Immunodeficiency Virus (HIV): No Hx Hepatitis C: No Hx Depression: No Hx Suicide Attempt: No Hx Bipolar Disorder: No Hx Schizophrenia: Yes Other Medical History: DENIES - Patient Surgical History Past Surgical History: Yes Hx Neurologic Surgery: No Hx Cataract Extraction: No Hx Cardiac Surgery: No Hx Lung Surgery: No Hx Breast Surgery: No Hx Breast Biopsy: No Hx Abdominal Surgery: No Hx Appendectomy: No Hx Cholecystectomy: No Hx Genitourinary Surgery: No Hx Section: No Hx Orthopedic Surgery: No Other Surgical History: stitches on forehead due to trauma in 2010 Anesthesia Reaction: No - PPD History Previous Implant?: Yes Documented Results: Negative w/proof Implanted On Prior [facility] Admission?: Yes Date: 05/14/19 Results: 0 mm PPD to be Administered?: No - Smoking Cessation Smoking history: Current every day smoker Have you smoked in the past 12 months: Yes Aproximately how many cigarettes per day: 10 Cigars Per Day: 0 Hx Chewing Tobacco Use: No Initiated information on smoking cessation: Yes 'Breaking Loose' booklet given: 05/31/19 - Substance & Tx. History Hx Alcohol Use: Yes Hx Substance Use: Yes Substance Use Type: Alcohol Hx Substance Use Treatment: Yes ([facility]) - Substances abused Alcohol Substance route: Oral Frequency: Daily Amount used: 4 PINTS OF LIQUOR Age of first use: 12 Date of last use: 05/30/19 Admission Physical Exam BHS - Vital Signs Vital Signs: Vital Signs - 24 hr 05/31/19 19:31 Temperature 99 F Pulse Rate 89 Respiratory 18 Rate Blood Pressure 131/74 - Physical General Appearance: Yes: Mild Distress, Tremorous (felt), Anxious, Other ( malodurous) HEENTM: Yes: EOMI, Normocephalic, Normal Voice, ALEXANDER, Pharynx Normal Respiratory: Yes: Chest Non-Tender, Lungs Clear, Normal Breath Sounds, No Respiratory Distress, No Accessory Muscle Use Neck: Yes: No masses,lesions,Nodules, Supple, Trachea in good position Breast: Yes: Breasts Symetrical Cardiology: Yes: Regular Rhythm, Regular Rate, S1, S2 Abdominal: Yes: Normal Bowel Sounds, Non Tender, Soft, Protuberent, Other ( abrasion noted above umbilical) Genitourinary: Yes: Within Normal Limits Back: Yes: Normal Inspection Musculoskeletal: Yes: full range of Motion, Gait Steady Extremities: Yes: Non-Tender, Tremors (felt) 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: Yes: Fully Oriented, Alert, Motor Strength 5/5, Depressed Affect ( denies si) Integumentary: Yes: Warm, Moist Lymphatic: Yes: Within Normal Limits - Diagnostic (1) Homeless Current Visit: Yes Status: Suspected (2) Alcohol dependence with uncomplicated withdrawal Current Visit: Yes Status: Acute (3) Nicotine dependence Current Visit: Yes Status: Chronic Qualifiers: Nicotine product type: cigarettes Substance use status: in withdrawal Qualified Code(s): F17.213 - Nicotine dependence, cigarettes, with withdrawal (4) Asthma Current Visit: Yes Status: Chronic Qualifiers: Asthma severity: mild Asthma persistence: intermittent Asthma complication type: with status asthmaticus Qualified Code(s): J45.22 - Mild intermittent asthma with status asthmaticus (5) GERD (gastroesophageal reflux disease) Current Visit: Yes Status: Chronic Qualifiers: Esophagitis presence: esophagitis presence not specified Qualified Code(s) : K21.9 - Gastro-esophageal reflux disease without esophagitis (6) History of seizure Current Visit: Yes Status: Chronic Comment: REPORTS LAST EPISODE 3 MONTHS AGO (7) Schizoaffective disorder Current Visit: Yes Status: Chronic Qualifiers: Schizoaffective disorder type: unspecified Qualified Code(s): F25.9 - Schizoaffective disorder, unspecified Comment: As per history. On prolixin decanoate 25 mg IM (dispensed on 02/04/19 according to patient). (8) Substance induced mood disorder Current Visit: Yes Status: Suspected Cleared for Admission [facility] - Detox or Rehab [facility] Level of Care: Medically Managed Detox Regimen/Protocol: Librium Claeared for Rehab Admission: No Breathalyzer - Breathalyzer Breathalyzer: 0 Urine Drug Screen - Test Device Lot number: [id number] Expiration date: 12/14/20 - Control Is test valid?: Yes - Results Drug screen NEGATIVE: No Urine drug screen results: BZO-Benzodiazepines Inpatient Rehab Admission - Rehab Decision to Admit Inpatient rehab admission?: No
[2019-05-31] MEDS ORDERED: METHOCARBAMOL 500 MG TABLET PO PRN (22:50)
[2019-05-31] MEDS ORDERED: IBUPROFEN 400 MG TABLET (FP) PO PRN (22:50)
[2019-05-31] MEDS ORDERED: P-EPHED 60MG/TRIPROLIDI 2.5MG TABLET PO PRN (22:50)
[2019-05-31] MEDS ORDERED: guaiFENesin 200 MG/10 ML 10 ML UNIT-DOSE CUPS PO PRN (22:50)
[2019-05-31] MEDS ORDERED: ACETAMINOPHEN 325 MG TABLET (FP) PO PRN ×2 (22:50)
[2019-05-31] MEDS ORDERED: chlordiazePOXIDE HCL 25 MG CAPSULE PO PRN (22:50)
[2019-05-31] MEDS ORDERED: MELATONIN 5 MG TABLETS PO PRN (22:50)
[2019-05-31] MEDS ORDERED: MAG HYDROX/AL HYDROX/SIMETH 30 ML UNIT-DOSE CUP PO PRN (22:50)
[2019-05-31] MEDS ORDERED: MENTHOL/PHENOL 1 EACH UD MM PRN (22:50)
[2019-05-31] MEDS ORDERED: DICYCLOMINE HCL 10 MG CAPSULE PO PRN (22:50)
[2019-05-31] MEDS ORDERED: hydrOXYzine PAMOATE 25 MG CAPSULE (FP) PO PRN (22:50)
[2019-05-31] MEDS ORDERED: MAGNESIUM CITRATE 300 ML BOTTLE PO PRN (22:50)
[2019-05-31] MEDS ORDERED: ONDANSETRON *ODT* 4 MG TABLET SL PRN (22:50)
[2019-05-31] MEDS ORDERED: MAGNESIUM HYDROX 2400MG/30ML ORAL SUSPENSION 30 ML CUP PO PRN (22:50)
[2019-05-31] MEDS ORDERED: BISMUTH SUBSALICYLATE 524 MG/30 ML UD PO PRN (22:50)
[2019-05-31] MEDS ORDERED: NICOTINE POLACRILEX 2 MG GUM BUC PRN (22:50)
[2019-05-31] MEDS: chlordiazePOXIDE HCL 25 MG CAPSULE PO SCH (23:51)
[2019-06-01] MEDS: chlordiazePOXIDE HCL 25 MG CAPSULE PO SCH ×4 (07:11→23:37)
[2019-06-01] MEDS: NICOTINE 21 MG/24 HOURS TOPICAL PATCH TD SCH (10:40)
[2019-06-01] MEDS: PRENATAL VITAMINS W/ FOLIC ACID TABLET (FP) PO SCH (10:41)
--- NOTE | 2019-06-01 12:01 | PN ---
[facility] CIWA - CIWA Score Nausea/Vomitin-No Nausea/No Vomiting Muscle Tremors: 3 Anxiety: 3 Agitation: 3 Paroxysmal Sweats: 2 Orientation: 0-Oriented Tacttile Disturbances: 0-None Auditory Disturbances: 0-None Visual Disturbances: 0-None Headache: 0-None Present CIWA-Ar Total Score: 11 S Progress Note (SOAP) Subjective: body aches sweats interrupted sleep agitation tired Objective: 06/01/19 11:56 Vital Signs Temperature 97.9 F 06/01/19 06:30 Pulse Rate 73 06/01/19 06:30 Respiratory Rate 20 06/01/19 06:30 Blood Pressure 127/60 06/01/19 06:30 O2 Sat by Pulse Oximetry (%) labs pending aaox3 ambulating no acute distress Assessment: 06/01/19 12:00 withdrawal sx Plan: continue detox
--- NOTE | 2019-06-01 14:49 | CONSULT ---
[facility] Psychiatric Consult - Data Date of interview: 06/01/19 Psychiatric History: Patient was approached at bedside. Told tech writer:" I'm tired and need to rest. I'm on Prolixin Injection and I took it already". Please reconsult when patient is willing to talk
[2019-06-01] MEDS: THIAMINE HCL 100 MG TABLET (FP) PO SCH (23:37)
[2019-06-02] MEDS: chlordiazePOXIDE HCL 25 MG CAPSULE PO SCH ×4 (06:53→22:28)
[2019-06-02] MEDS: NICOTINE 21 MG/24 HOURS TOPICAL PATCH TD SCH (10:37)
[2019-06-02] MEDS: PRENATAL VITAMINS W/ FOLIC ACID TABLET (FP) PO SCH (10:37)
--- NOTE | 2019-06-02 12:39 | PN ---
S CIWA - CIWA Score Nausea/Vomitin-No Nausea/No Vomiting Muscle Tremors: 3 Anxiety: 2 Agitation: 2 Paroxysmal Sweats: 2 Orientation: 0-Oriented Tacttile Disturbances: 0-None Auditory Disturbances: 0-None Visual Disturbances: 0-None Headache: 0-None Present CIWA-Ar Total Score: 9 BHS Progress Note (SOAP) Subjective: sweats shakes interrupted sleep Objective: 06/02/19 12:38 Vital Signs Temperature 97.7 F 06/02/19 09:43 Pulse Rate 110 H 06/02/19 09:43 Respiratory Rate 18 06/02/19 09:43 Blood Pressure 142/95 06/02/19 09:43 O2 Sat by Pulse Oximetry (%) aaox3 ambulating no acute distress Assessment: 06/02/19 12:38 withdrawals sx Plan: continue detox increase fluids
[2019-06-02] MEDS: THIAMINE HCL 100 MG TABLET (FP) PO SCH (22:28)
[2019-06-03] MEDS ORDERED: chlordiazePOXIDE HCL 10 MG CAPSULE PO PRN
[2019-06-03] MEDS: chlordiazePOXIDE HCL 10 MG CAPSULE PO SCH ×4 (05:40→22:42)
[2019-06-03] MEDS: NICOTINE 21 MG/24 HOURS TOPICAL PATCH TD SCH (11:01)
[2019-06-03] MEDS: PRENATAL VITAMINS W/ FOLIC ACID TABLET (FP) PO SCH (11:02)
--- NOTE | 2019-06-03 17:51 | PN ---
S CIWA - CIWA Score Nausea/Vomitin-No Nausea/No Vomiting Muscle Tremors: 3 Anxiety: 3 Agitation: 1-Slight > Activity Paroxysmal Sweats: 2 Orientation: 0-Oriented Tacttile Disturbances: 0-None Auditory Disturbances: 0-None Visual Disturbances: 0-None Headache: 0-None Present CIWA-Ar Total Score: 9 BHS Progress Note (SOAP) Subjective: Sweating, Anxious, Fatigue. Objective: PATIENT A & O X 3, OBSERVED AMBULATING ON DETOX UNIT UNASSISTED. IN NO ACUTE DISTRESS. 06/03/19 17:51 Vital Signs Temperature 98.1 F 06/03/19 15:43 Pulse Rate 80 06/03/19 15:43 Respiratory Rate 17 06/03/19 15:43 Blood Pressure 141/75 06/03/19 15:43 O2 Sat by Pulse Oximetry (%) CBC AND CMP ORDERED (LAST RESULTS FROM 01/2019). DETOX ADMISSION RESULTS PENDING. PATIENT DENIES ANY UNUSUAL URINARY COMPLAINTS (BURNING, PAIN, FREQUENCY, URGENCY , HESITANCY, VISUALIZATION OF BLOOD IN URINE). 06/03/19 17:54 Assessment: 06/03/19 17:56 WITHDRAWAL SYMPTOMS. Plan: CONTINUE DETOX. INCREASE DAILY ORAL WATER INTAKE.
[2019-06-03] MEDS: THIAMINE HCL 100 MG TABLET (FP) PO SCH (22:37)
[2019-06-04] MEDS: chlordiazePOXIDE HCL 10 MG CAPSULE PO SCH ×2 (07:03→18:42)
[2019-06-04] MEDS: NICOTINE 21 MG/24 HOURS TOPICAL PATCH TD SCH (10:33)
[2019-06-04] MEDS: PRENATAL VITAMINS W/ FOLIC ACID TABLET (FP) PO SCH (10:34)
[2019-06-04 10:45] LABS: ALBUMIN 3.7 g/dl (3.4-5.0); BILIRUBIN,TOTAL 0.2 mg/dL (0.2-1); BLOOD UREA NITROGEN 11.3 mg/dL (7-18); CALCIUM 9.1 mg/dL (8.5-10.1); CREATININE 0.9 mg/dL (0.55-1.3); POTASSIUM 4.2 mmol/L (3.5-5.1); TOT PROT 7.6 g/dl (6.4-8.2)
[2019-06-04 10:48] LABS: BASO % 0.7 % (0-2.0); EOS % 5.8 % (0-4.5); HEMATOCRIT 41.8 % (35.4-49); HEMOGLOBIN 13.7 GM/dL (11.7-16.9); LYMPH % 31.2 % (8-40); MCH 26.6 pg (25.7-33.7); MCHC 32.9 g/dl (32.0-35.9); MEAN CELL VOLUME 80.7 fl (80-96); MEAN PLT VOLUME 7.2 fl (7.5-11.1); MONO % 9.8 % (3.8-10.2); NEUT % 52.5 % (42.8-82.8); PLATELET COUNT 375 K/MM3 (134-434); RBC 5.17 M/mm3 (4.00-5.60); RDW 15.8 % (11.9-15.9); WHITE BLOOD COUNT 6.4 K/mm3 (4.0-10.0)
--- NOTE | 2019-06-04 14:51 | PN ---
S CIWA - CIWA Score Nausea/Vomitin-No Nausea/No Vomiting Muscle Tremors: 2 Anxiety: 1-Mildly Anxious Agitation: 1-Slight > Activity Paroxysmal Sweats: No Perspiration Orientation: 0-Oriented Tacttile Disturbances: 0-None Auditory Disturbances: 0-None Visual Disturbances: 0-None Headache: 0-None Present CIWA-Ar Total Score: 4 BHS Progress Note (SOAP) Subjective: little anxiety feeling better Objective: 06/04/19 14:50 Vital Signs Temperature 97.7 F 06/04/19 14:27 Pulse Rate 87 06/04/19 14:27 Respiratory Rate 16 06/04/19 14:27 Blood Pressure 129/96 06/04/19 14:27 O2 Sat by Pulse Oximetry (%) aaox3 ambulating no acute distress Assessment: 06/04/19 14:50 mild withdrawals Plan: d/c in am
[2019-06-04] MEDS: THIAMINE HCL 100 MG TABLET (FP) PO SCH (21:31)
[2019-06-05] MEDS ORDERED: chlordiazePOXIDE HCL 10 MG CAPSULE PO ONE (05:00)
[2019-06-05 07:02] VITALS: BP 138/85; PULSE 74; TEMP 97.3
--- NOTE | 2019-06-05 09:41 | DS ---
[facility] Detox Discharge Summary Admission Date: 05/31/19 Discharge Date: 06/05/19 - History Present History: Alcohol Dependence - Physical Exam Results Vital Signs: Vital Signs Temperature 97.3 F L 06/05/19 07:02 Pulse Rate 74 06/05/19 07:02 Respiratory Rate 18 06/05/19 07:02 Blood Pressure 138/85 06/05/19 07:02 O2 Sat by Pulse Oximetry (%) Pertinent Admission Physical Exam Findings: Vital Signs Temperature 97.3 F L 06/05/19 07:02 Pulse Rate 74 06/05/19 07:02 Respiratory Rate 18 06/05/19 07:02 Blood Pressure 138/85 06/05/19 07:02 O2 Sat by Pulse Oximetry (%) Laboratory Tests 06/04/19 06/04/19 06/04/19 08:40 08:40 08:40 WBC 6.4 RBC 5.17 Hgb 13.7 Hct 41.8 MCV 80.7 MCH 26.6 MCHC 32.9 RDW 15.8 Plt Count 375 D MPV 7.2 L Absolute Neuts (auto) 3.4 Neutrophils % 52.5 Lymphocytes % 31.2 Monocytes % 9.8 Eosinophils % 5.8 H D Basophils % 0.7 Nucleated RBC % 0 Sodium 140 Potassium 4.2 Chloride 104 Carbon Dioxide 30 Anion Gap 6 L BUN 11.3 Creatinine 0.9 Est GFR (CKD-EPI)AfAm 122.52 Est GFR (CKD-EPI)NonAf 105.71 Random Glucose 102 Calcium 9.1 Total Bilirubin 0.2 AST 20 ALT 37 Alkaline Phosphatase 66 Total Protein 7.6 Albumin 3.7 RPR Titer Nonreactive HIV 1&2 Antibody Screen HIV P24 Antigen 06/04/19 08:40 WBC RBC Hgb Hct MCV MCH MCHC RDW Plt Count MPV Absolute Neuts (auto) Neutrophils % Lymphocytes % Monocytes % Eosinophils % Basophils % Nucleated RBC % Sodium Potassium Chloride Carbon Dioxide Anion Gap BUN Creatinine Est GFR (CKD-EPI)AfAm Est GFR (CKD-EPI)NonAf Random Glucose Calcium Total Bilirubin AST ALT Alkaline Phosphatase Total Protein Albumin RPR Titer HIV 1&2 Antibody Screen Negative HIV P24 Antigen Negative aaox3 ambulating no acute distress - Treatment Hospital Course: Detox Protocol Followed, Detoxed Safely, Responded well, Discharged Condition Good, Rehab Referral Accepted - Medication Discharge Medications: Ambulatory Orders Fluphenazine HCl Injection [Prolixin Injection -] 2.5 ml IM MONTHLY 12/17/18 - Diagnosis (1) Alcohol dependence with uncomplicated withdrawal Current Visit: Yes Status: Resolved (2) Asthma Current Visit: Yes Status: Chronic Qualifiers: Asthma severity: mild Asthma persistence: intermittent Asthma complication type: with status asthmaticus Qualified Code(s): J45.22 - Mild intermittent asthma with status asthmaticus (3) GERD (gastroesophageal reflux disease) Current Visit: Yes Status: Chronic Qualifiers: Esophagitis presence: without esophagitis Qualified Code(s): K21.9 - Gastro -esophageal reflux disease without esophagitis (4) History of seizure Current Visit: Yes Status: Chronic (5) Nicotine dependence Current Visit: Yes Status: Chronic Qualifiers: Nicotine product type: cigarettes Substance use status: uncomplicated Qualified Code(s): F17.210 - Nicotine dependence, cigarettes, uncomplicated (6) Schizoaffective disorder Current Visit: Yes Status: Chronic Qualifiers: Schizoaffective disorder type: unspecified Qualified Code(s): F25.9 - Schizoaffective disorder, unspecified (7) Substance induced mood disorder Current Visit: Yes Status: Suspected (8) History of traumatic head injury Current Visit: No Status: Resolved - AMA Did Patient Leave Against Medical Advice: No
== END 2019-06-05 11:10 | disposition home or self-care (01) | DRG 897 ==
LOC: YASAS 18:03 → Y6N 23:13
PROVIDERS: ADMIT Allergy & Immunology; ATTEND Allergy & Immunology
PROC: HZ2ZZZZ Detoxification Services for Substance Abuse Treatment (ICD-10-PCS; principal; 2019-05-31)
DX: F10.230 Alcohol dependence with withdrawal, uncomplicated (principal); J45.22 Mild intermittent asthma with status asthmaticus; F17.210 Nicotine dependence, cigarettes, uncomplicated; F19.24 Other psychoactive substance dependence with psychoactive substance-induced mood disorder; F25.9 Schizoaffective disorder, unspecified; K21.9 Gastro-esophageal reflux disease without esophagitis; Z87.820 Personal history of traumatic brain injury; Z86.69 Personal history of other diseases of the nervous system and sense organs; Z91.013 Allergy to seafood; Z91.048 Other nonmedicinal substance allergy status; Z56.0 Unemployment, unspecified; Z59.0 Homelessness
CPT/HCPCS: 36415; 80053; 85025; 86593; 87389